=== PATIENT | female | born 1955 ===

== ENCOUNTER 2016-10-30 10:21 | Inpatient (IN) | payer MEDICAID ==
[2016-10-30 15:38] VITALS: BMI 30.9
[2016-10-30] MEDS ORDERED: Atovaquone 750 mg/5 ml Susp UD PO SCH (16:45)
[2016-10-30] MEDS ORDERED: Pneumococcal 23-Valent Vaccine IM ONE (17:00)
--- NOTE | 2016-10-30 18:41 | CP.PCM.HP ---
History of Present Illness - History of Present Illness History of Present Illness: Hospitalist Admission H&P (Patient was seen and examined at 6 PM 621-1 10/30/16 with the help of HARIKA Garibay who helped to translate Somali) 61 year old female ( who was admitted to [facility] on 10/24/16 after waking up from a nap and was found to have right sided weakness and slurred speech. She was found to have an evolving left mike radiata infact and was given TPA. She is admitted to [facility] Rehab for PT/OT. MRI Brain [facility]: evolving left mike radiata infarct 12x8 mm, small old right pontine lacunar infarct Carotid U/S [facility]: no signs of stenosis Currently upon FULL ROS: NO chest pain, NO palpitations, NO SOB/Cough/Wheezing, NO Abdominal Pain, NO n/v /d/c, NO burning/pain with urinations, NO lightheadedness/dizziness, NO headaches, NO new changes in vision/eye pain, NO new changes in hearing/ear pain , (+) Left Ear Popping sensation that comes and goes, NO paresthesias/loss of sensation PMHx: HIV, Nephrolithiasis, Cholelithiasis, Cervical CA S/P Chemo/Radiation ( Last Tx 2010), Asthma, Depression, Cocaine use (last use was 09/29/16) PSHx: Unspecified Spinal Surgery (2010), Unspecified Left Upper Leg Mass x 2 removal (2009) ALL: NDKA Medications: Please see individual Assessment and Plans below Social Hx: Lives in multilevel family home, (+) Tobacco: once a month she smokes 1 pack, (+) Alcohol: once a month she drinks 6 beers, (+) Cocaine: last use 09/29/16 Family Hx: coud not provide Present on Admission - Present on Admission Any Indicators Present on Admission: Yes History of DVT/PE: No History of Uncontrolled Diabetes: No Review of Systems - Review of Systems Review of Systems: Please see above Past Patient History - Past Medical History & Family History Past Medical History?: Yes Pertinent Family History: Please see above - Past Social History Smoking Status: Heavy Smoker > 10 Cigarettes Daily - CARDIAC Hx Cardiac Disorders: No - PULMONARY Hx Asthma: Yes - NEUROLOGICAL HX Cerebrovascular Accident: Yes (09/2016) - HEENT Hx HEENT Problems: No - RENAL Hx Kidney Stones: Yes - ENDOCRINE/METABOLIC Hx Endocrine Disorders: No - HEMATOLOGICAL/ONCOLOGICAL Hx AIDS: Yes Hx Chemotherapy: Yes Hx Human Immunodeficiency Virus (HIV): Yes - INTEGUMENTARY Hx Dermatological Problems: No - MUSCULOSKELETAL/RHEUMATOLOGICAL Hx Falls: No Other/Comment: SPINAL SURGERY 2010 - GASTROINTESTINAL Hx Gall Bladder Disease: Yes (CHOLELITHIASIS) - GENITOURINARY/GYNECOLOGICAL Hx Cervical Cancer: Yes (S/P CHEMO AND RADIATION 2010) Hx Sexually Transmitted Disorders: Yes Other/Comment: OVARIAN(?) OR CERVICAL(?) MASS X2 S/P EXCISION - PSYCHIATRIC Hx Depression: Yes Hx Substance Use: Yes (COCAINE ONCE A MONTH, LAST USE 09/29) Other/Comment: -SMOKES 1 PACK OF CIGARETTE IN ONE DAY ONCE A MONTH X25 YEARS. - DRINKS 6 BEERS IN ONE DAY, ONCE A MONTH X25 YEARS. SNORTS COCAINE ONE DAY ONCE A MONTH X25 YEARS - ANESTHESIA Hx Anesthesia: Yes Hx Anesthesia Reactions: No Hx Malignant Hyperthermia: No Has any member of the family had a problem w/ anesthesia?: No Meds Allergies/Adverse Reactions: Allergies Allergy/AdvReac Type Severity Reaction Status Date / Time No Known Allergies Allergy Verified 10/30/16 15:38 Physical Exam - Constitutional Appears: Non-toxic, No Acute Distress - Head Exam Head Exam: ATRAUMATIC, NORMAL INSPECTION, NORMOCEPHALIC - Eye Exam Eye Exam: EOMI, Normal appearance, PERRL Pupil Exam: NORMAL ACCOMODATION, PERRL - ENT Exam ENT Exam: Mucous Membranes Moist, Normal Exam, Normal External Ear Exam, Normal Oropharynx - Neck Exam Neck exam: Positive for: Normal Inspection Additional comments: NO thyromegaly NO lymphadenopathy - Respiratory Exam Respiratory Exam: Clear to Auscultation Bilateral, NORMAL BREATHING PATTERN Additional comments: CTA B/L, NO R/R/W - Cardiovascular Exam Cardiovascular Exam: REGULAR RHYTHM, +S1, +S2 Additional comments: NS1 and NS2, NO M/R/G - GI/Abdominal Exam GI & Abdominal Exam: Normal Bowel Sounds, Soft Additional comments: BSx4, Soft, NT, ND, NO HSM, NO guarding/rebound tenderness - Extremities Exam Extremities exam: Positive for: normal inspection Additional comments: Pulses are strong and equal Capillary Refill is 2 seconds NO edema Onychomycosis of the nails of the feet - Neurological Exam Neurological exam: CN II-XII Intact Additional comments: 5/5 strength with flexion and extension Left Arm and Left Leg 3/5 strength with flexion and extension Right Arm and Right Leg Results - Vital Signs Recent Vital Signs: Last Vital Signs Temp 97.7 F 10/30/16 15:25 Pulse 67 10/30/16 15:53 Resp 20 10/30/16 15:53 BP 111/76 10/30/16 15:25 Pulse Ox 96 10/30/16 15:53 Assessment & Plan (1) Hx of ischemic left MCA stroke Assessment and Plan: ASA 81 mg PO 1x/day Plavix 75 mg PO 1x/day Atorvastatin 80 mg PO 1x/day through 11/16/16 then 40 mg PO 1x/day as per [facility] records Neurology Dr. Frida Guevara Physiatry Dr. Zavala PT/OT Status: Chronic (2) HIV (human immunodeficiency virus infection) Assessment and Plan: Last CD 4 count was 173 on 10/04/16 as per [facility] records Patient states that ID Dr. Christina Romero follows her as outpatient and she last saw Dr. Romero on 10/23/16 at which time she was instructed (as per patient) to start taking her Truvada and Prezcobix which she stopped taking on her for roughly 5 months She was not started on these medications at [facility] presumably due to her noncompliance with the treatment in the past. Medicine Team should contact Dr. Christina Romero and determine if she would like patient to be started on these medications as she is her outpatient ID physician I spoke with ID Dr. Zeus Unger and he recommended prophylaxis with Bactrim DS 1 tab PO and Zythromax 600 mg 1 tab PO 1x/week (Saturday) Status: Chronic (3) History of asthma Assessment and Plan: Duoneb Q6H PRN SOB/Wheezing Status: Chronic (4) History of depression Status: Chronic (5) History of cocaine use Status: Chronic (6) Prophylactic measure Assessment and Plan: Lovenox 40 mg SC 1x/day Pepcid 20 mg PO 2x/day Lactobacillus PO 1x/day Zofran 4 mg IV Q8H PRN N/V Ambien 5 mg PO QHS PRN Insomnia Status: Acute
[2016-10-30] MEDS ORDERED: Albuterol-Ipratrop 3 mg / 0.5 (3 ml) UD INH PRN (19:59)
[2016-10-31 07:28] LABS: BASO % 0.6 % (0.0-2.0); EOS # 0.1 K/uL (0.0-0.7); EOS % 2.6 % (0.0-4.0); HEMOGLOBIN 13.2 g/dL (12.0-16.0); LYMPH # 1.3 K/uL (1.0-4.3); LYMPH % 31.5 % (20.0-40.0); MEAN CELL VOLUME 87.6 fl (81.0-99.0); MEAN CORPUSCULAR HEMOGLOBIN 28.8 pg (27.0-31.0); MEAN CORPUSCULAR HGB CONC 32.8 g/dL (33.0-37.0); MEAN PLATELET VOLUME 10.3 fl (7.2-11.7); MONO # 0.5 K/uL (0.0-0.8); MONO % 12.2 % (0.0-10.0); NEUT # 2.1 K/uL (1.8-7.0); NEUT % 53.1 % (50.0-75.0); NRBC % 0.5 % (0.0-0.0); RBC 4.6 Mil/uL (3.80-5.20); RED CELL DISTRIBUTION WIDTH 13.8 % (11.5-14.5)
[2016-10-31 07:41] LABS: ALB/GLOB RATIO 0.8 (1.0-2.1); ALBUMIN 3.9 g/dL (3.5-5.0); ALT/SGPT 50 U/L (9-52); AST/SGOT 59 U/L (14-36); BLOOD UREA NITROGEN 17 mg/dl (7-17); CALCIUM 9.1 mg/dL (8.4-10.2); GFR AFRICAN-AMERICAN > 60; GFR NON-AFRICAN AMERICAN 51
[2016-10-31] MEDS: Lactobacillus Acidophilus 500 MU Cap PO SCH (08:29)
[2016-10-31] MEDS: Tmp-Smz 800 mg-160 mg DS Tab PO SCH (08:29)
[2016-10-31] MEDS: Enoxaparin 40 mg Syringe SC SCH (08:30)
--- NOTE | 2016-10-31 11:26 | CP.PCM.PN ---
Subjective - Date & Time of Evaluation Date of Evaluation: 10/31/16 Time of Evaluation: 11:24 - Subjective Subjective: left CVA, right HP Objective - Vital Signs/Intake and Output Vital Signs (last 24 hours): Temp Pulse Resp BP Pulse Ox 97.5 F L 72 18 99/65 L 97 10/31/16 10:00 10/31/16 10:00 10/31/16 10:00 10/31/16 10:00 10/31/16 10:00 - Medications Medications: Current Medications Albuterol/Ipratropium (Duoneb 3 Mg/0.5 Mg (3 Ml) Ud) 3 ml INH RQ6 PRN PRN Reason: Shortness of Breath Aspirin (Aspirin Chewable) 81 mg PO DAILY [facility] Last Admin: 10/31/16 08:29 Dose: 81 mg Atorvastatin Calcium (Lipitor) 80 mg PO HS [facility] Last Admin: 10/30/16 21:14 Dose: 80 mg Azithromycin (Zithromax) 600 mg PO QWK@2100 [facility] Last Admin: 10/30/16 21:14 Dose: 600 mg Clopidogrel Bisulfate (Plavix) 75 mg PO DAILY [facility] Last Admin: 10/31/16 08:30 Dose: 75 mg Enoxaparin Sodium (Lovenox) 40 mg SC DAILY [facility] PRN Reason: Protocol Last Admin: 10/31/16 08:30 Dose: 40 mg Famotidine (Pepcid) 20 mg PO BID [facility] Last Admin: 10/31/16 08:31 Dose: 20 mg Lactobacillus Acidophilus (Bacid Acidophilus) 1 cap PO DAILY [facility] Last Admin: 10/31/16 08:29 Dose: 1 cap Trimethoprim/Sulfamethoxazole (Bactrim Ds Tab) 1 tab PO MWF [facility] Last Admin: 10/31/16 08:29 Dose: 1 tab Zolpidem Tartrate (Ambien) 5 mg PO HS PRN PRN Reason: Insomnia Last Admin: 10/30/16 23:11 Dose: 5 mg - Labs Labs: 10/31/16 06:00 10/31/16 06:00 Physiatry Overall Plan of Care - Overall Plan of Care Estimated Length of Stay in Weeks: 3 Rehab Impairment: Mobility, Gait, Balance, Coordination Etiologic Diagnosis: Cerebrovascular Accident Rehab/Medical Prognosis: Fair - Anticipated Interventions Physical Therapy:: Yes Occupational Therapy:: Yes Recreational Therapy:: Yes - Therapy Goals Bed Mobility: Contact Guard Ambulation: Contact Guard Functional Positional Changes:: Contact Guard - Discharge Plan Identification of Barriers to Discharge: Home Situation Discharge Destination: Home
--- NOTE | 2016-10-31 11:32 | CP.PCM.CON ---
History of Present Illness - History of Present Illness History of Present Illness: Dr Zavala PMR consultation on Kinga Perrin, born 1955, who has been admitted to [facility] for acute inpatient rehabilitation following a left CVA with right HP, MCA distribution. tPA had been given. Active cocaine user and HIV+ Review of Systems - EENT Nose/Mouth/Throat: absent: Nasal Congestion - Cardiovascular Cardiovascular: absent: Chest Pain - Respiratory Respiratory: absent: Dyspnea - Gastrointestinal Gastrointestinal: absent: Belching, Constipation - Musculoskeletal Musculoskeletal: absent: Back Pain - Neurological Neurological: absent: Abnormal Movements Past Patient History - Past Medical History & Family History Past Medical History?: Yes - Past Social History Smoking Status: Heavy Smoker > 10 Cigarettes Daily Alcohol: < 2 Drinks/Day Drugs: Cocaine Home Situation {Lives}: With Family (10 steps) - CARDIAC Hx Cardiac Disorders: No - PULMONARY Hx Asthma: Yes - NEUROLOGICAL HX Cerebrovascular Accident: Yes (09/2016) - HEENT Hx HEENT Problems: No - RENAL Hx Kidney Stones: Yes - ENDOCRINE/METABOLIC Hx Endocrine Disorders: No - HEMATOLOGICAL/ONCOLOGICAL Hx AIDS: Yes Hx Chemotherapy: Yes Hx Human Immunodeficiency Virus (HIV): Yes - INTEGUMENTARY Hx Dermatological Problems: No - MUSCULOSKELETAL/RHEUMATOLOGICAL Hx Falls: No Other/Comment: SPINAL SURGERY 2010 - GASTROINTESTINAL Hx Gall Bladder Disease: Yes (CHOLELITHIASIS) - GENITOURINARY/GYNECOLOGICAL Hx Cervical Cancer: Yes (S/P CHEMO AND RADIATION 2010) Hx Sexually Transmitted Disorders: Yes Other/Comment: OVARIAN(?) OR CERVICAL(?) MASS X2 S/P EXCISION - PSYCHIATRIC Hx Depression: Yes Hx Substance Use: Yes (COCAINE ONCE A MONTH, LAST USE 09/29) Other/Comment: -SMOKES 1 PACK OF CIGARETTE IN ONE DAY ONCE A MONTH X25 YEARS. - DRINKS 6 BEERS IN ONE DAY, ONCE A MONTH X25 YEARS. SNORTS COCAINE ONE DAY ONCE A MONTH X25 YEARS - ANESTHESIA Hx Anesthesia: Yes Hx Anesthesia Reactions: No Hx Malignant Hyperthermia: No Has any member of the family had a problem w/ anesthesia?: No Meds Allergies/Adverse Reactions: Allergies Allergy/AdvReac Type Severity Reaction Status Date / Time No Known Allergies Allergy Verified 10/30/16 15:38 - Medications Medications: Current Medications Albuterol/Ipratropium (Duoneb 3 Mg/0.5 Mg (3 Ml) Ud) 3 ml INH RQ6 PRN PRN Reason: Shortness of Breath Aspirin (Aspirin Chewable) 81 mg PO DAILY [facility] Last Admin: 10/31/16 08:29 Dose: 81 mg Atorvastatin Calcium (Lipitor) 80 mg PO HS [facility] Last Admin: 10/30/16 21:14 Dose: 80 mg Azithromycin (Zithromax) 600 mg PO QWK@2100 [facility] Last Admin: 10/30/16 21:14 Dose: 600 mg Clopidogrel Bisulfate (Plavix) 75 mg PO DAILY [facility] Last Admin: 10/31/16 08:30 Dose: 75 mg Enoxaparin Sodium (Lovenox) 40 mg SC DAILY [facility] PRN Reason: Protocol Last Admin: 10/31/16 08:30 Dose: 40 mg Famotidine (Pepcid) 20 mg PO BID [facility] Last Admin: 10/31/16 08:31 Dose: 20 mg Lactobacillus Acidophilus (Bacid Acidophilus) 1 cap PO DAILY [facility] Last Admin: 10/31/16 08:29 Dose: 1 cap Trimethoprim/Sulfamethoxazole (Bactrim Ds Tab) 1 tab PO MWF [facility] Last Admin: 10/31/16 08:29 Dose: 1 tab Zolpidem Tartrate (Ambien) 5 mg PO HS PRN PRN Reason: Insomnia Last Admin: 10/30/16 23:11 Dose: 5 mg Physical Exam - Constitutional Appears: Non-toxic, No Acute Distress - Head Exam Head Exam: ATRAUMATIC, NORMAL INSPECTION, NORMOCEPHALIC - Eye Exam Eye Exam: EOMI, Normal appearance - ENT Exam ENT Exam: Mucous Membranes Moist - Respiratory Exam Respiratory Exam: NORMAL BREATHING PATTERN - Cardiovascular Exam Cardiovascular Exam: REGULAR RHYTHM - GI/Abdominal Exam GI & Abdominal Exam: absent: Distended - Extremities Exam Extremities exam: Negative for: calf tenderness, pedal edema - Neurological Exam Neurological exam: Alert, CN II-XII Intact, Oriented x3 - Psychiatric Exam Psychiatric exam: Normal Affect, Normal Mood - Skin Skin Exam: Warm Results - Vital Signs Recent Vital Signs: Last Vital Signs Temp 97.5 F L 10/31/16 10:00 Pulse 72 10/31/16 10:00 Resp 18 10/31/16 10:00 BP 99/65 L 10/31/16 10:00 Pulse Ox 97 10/31/16 10:00 - Labs Result Diagrams: 10/31/16 06:00 10/31/16 06:00 Labs: Laboratory Results - last 24 hr 10/31/16 10/31/16 06:00 06:00 WBC 4.0 L RBC 4.60 Hgb 13.2 Hct 40.3 MCV 87.6 MCH 28.8 MCHC 32.8 L RDW 13.8 Plt Count 115 L MPV 10.3 Neut % (Auto) 53.1 Lymph % (Auto) 31.5 Garland % (Auto) 12.2 H Eos % (Auto) 2.6 Baso % (Auto) 0.6 Neut # 2.1 Lymph # 1.3 Garland # 0.5 Eos # 0.1 Baso # 0.0 Sodium 137 Potassium 4.4 Chloride 101 Carbon Dioxide 26 Anion Gap 14 BUN 17 Creatinine 1.1 Est GFR ( Amer) > 60 Est GFR (Non-Af Amer) 51 Random Glucose 95 Calcium 9.1 Total Bilirubin 0.9 AST 59 H ALT 50 Alkaline Phosphatase 148 H Total Protein 8.8 H Albumin 3.9 Globulin 4.9 H Albumin/Globulin Ratio 0.8 L Assessment & Plan - Assessment and Plan (Free Text) Assessment: left CVA, right HP right UE 2-/5 and right LE 3+/5 PT/OT to continue to help increase functional independence Team conference for d/c planning Pain: controlled Vascular: no evidence of DVT GI: No evidence of constipation or diarrhea I will get a psych consult with Dr Tineo impairment code: 01.2 Patient is an excellent acute rehabilitation candidate and will have focused PT , OT and recreational therapy to help facilitate a safe and appropriate d/c plan
--- NOTE | 2016-10-31 14:51 | CON ---
DATE: 10/31/2016 CHIEF COMPLAINT: Right-sided weakness, status post left MCA territory infarct. HISTORY OF PRESENT ILLNESS: A 61-year-old woman who I know from [facility] with past medical history of cocaine use, last used on 09/29/2016; history of asthma; depression; hypertension; dyslipidemia; smoker, smoking 1 pack per day; who came into [facility] on 10/24/2016, after waking up from nap, was found to have right-sided weakness and slurred speech with status post TPA and found to have left MCA mike radiata infarct. She is currently on aspirin, Plavix and Lipitor 80 mg for stroke prevention, carotid ultrasound showed no significant stenosis. Currently, she has right hemiparesis/right upper extremity hemiplegia and right lower extremity hemiparesis from the CVA, stabilized at [facility] for acute rehab, physical and occupational therapy as well as speech. No acute events overnight. PAST MEDICAL HISTORY: Cocaine use, last on 09/29/2016; smoker; history of HIV; cervical CA, status post chemo and radiation; asthma; dyslipidemia; hypertension. PAST SURGICAL HISTORY: Spinal surgery on 2010. ALLERGIES: NO KNOWN DRUG ALLERGIES. MEDICATIONS: Reviewed by nurse per reconciliation sheet. SOCIAL HISTORY: She lives in multi-level family home. Positive for tobacco, once a month she smokes one pack per day. Alcohol occasionally, drinks 6 beers. Cocaine last use was on 09/29/2016. FAMILY HISTORY: Noncontributory. REVIEW OF SYSTEMS: A 14-point review of systems is negative except per the HPI. PHYSICAL EXAMINATION: VITAL SIGNS: Temperature 97.5, pulse rate , blood pressure 99/65, respiratory rate of 18, and oxygen saturation 97% by room air. GENERAL: The patient sitting up in bed, in no acute distress. HEENT: Head is atraumatic, normocephalic. PERRLA. Extraocular muscles intact. NECK: Supple. No JVD. No adenopathy noted. LUNGS: Clear to auscultation. No adventitious sounds. HEART: S1 and S2, normal rate and rhythm. No murmur, rubs, or gallops. ABDOMEN: Soft, nontender, nondistended. Bowel sounds present. EXTREMITIES: No clubbing. No cyanosis. Peripheral pulses 2+ felt bilaterally. NEUROLOGIC: The patient is alert and oriented to person, place, month, and year. Speech is sightly dysarthric, but no aphasia noted. Cranial nerves II through XII are intact except for right facial droop. Motor exam: Has right side weakness 4+/5, right toe upgoing, left side is intact, internal strength. Sensory exam: Light touch pinprick, proprioception, and vibration is intact. DTRs are 2+ throughout. [id number] is intact on the left, but difficulty on the right due to right-sided hemiplegia. Gait deferred for now. LABORATORY DATA: Sodium is 137, potassium 4.4, chloride 101, carbon dioxide 26, BUN of 17, and creatinine 1.1. Random glucose of 95. ASSESSMENT AND PLAN: This is a 61-year-old woman with past medical history of cervical cancer, status post chemo radiation, last treatment in 2010; history of dyslipidemia; hypertension; history of cocaine use, last use on 09/29/2016 and is an active smoker, who presented to the [facility] on 10/24/2016, after waking from nap and found to have right-sided weakness and slurred speech and status post TPA and found to have evolving left mike radiata infarct with no significant carotid artery stenosis. Her left MCA territory infract causing right-sided weakness secondary to diffuse atherosclerosis and history of cocaine use. At this time, I recommend: 1. Counseling cocaine cessation and tobacco cessation. 2. Aspirin 81, Plavix 75 and Lipitor 80 mg for stroke prevention. 3. Continue with physical therapy, occupational therapy and speech therapy in acute rehab. 4. Keep her systolic blood pressure between 120-130 mmHg, avoid sudden drops in blood pressure. 5. Continue current present medical management. Thank you for this consult. Trae Guevara MD
--- NOTE | 2016-10-31 20:42 | CP.PCM.PN ---
Subjective - Date & Time of Evaluation Date of Evaluation: 10/31/16 Time of Evaluation: 20:39 - Subjective Subjective: I D NOTE DISCUSSED LAST NIGHT,IF PATIENT UNWILLING TO CONTINUE TAKING [employer]Vs WOULD NOT START UNLESS HER ID PERSON CAN BE CONTACTED WOULD ONLY CREATE RESISTANCE Objective - Vital Signs/Intake and Output Vital Signs (last 24 hours): Temp Pulse Resp BP Pulse Ox 98.4 F 74 20 106/65 99 10/31/16 20:00 10/31/16 20:00 10/31/16 20:00 10/31/16 20:00 10/31/16 20:00 - Medications Medications: Current Medications Acetaminophen (Tylenol 325mg Tab) 650 mg PO Q4 PRN PRN Reason: .Pain (scale 4-10) Last Admin: 10/31/16 19:53 Dose: 650 mg Albuterol/Ipratropium (Duoneb 3 Mg/0.5 Mg (3 Ml) Ud) 3 ml INH RQ6 PRN PRN Reason: Shortness of Breath Aspirin (Aspirin Chewable) 81 mg PO DAILY [facility] Last Admin: 10/31/16 08:29 Dose: 81 mg Atorvastatin Calcium (Lipitor) 80 mg PO HS [facility] Last Admin: 10/30/16 21:14 Dose: 80 mg Azithromycin (Zithromax) 600 mg PO QWK@2100 [facility] Last Admin: 10/30/16 21:14 Dose: 600 mg Clopidogrel Bisulfate (Plavix) 75 mg PO DAILY [facility] Last Admin: 10/31/16 08:30 Dose: 75 mg Enoxaparin Sodium (Lovenox) 40 mg SC DAILY [facility] PRN Reason: Protocol Last Admin: 10/31/16 08:30 Dose: 40 mg Famotidine (Pepcid) 20 mg PO BID [facility] Last Admin: 10/31/16 16:51 Dose: 20 mg Lactobacillus Acidophilus (Bacid Acidophilus) 1 cap PO DAILY [facility] Last Admin: 10/31/16 08:29 Dose: 1 cap Trimethoprim/Sulfamethoxazole (Bactrim Ds Tab) 1 tab PO MWF [facility] Last Admin: 10/31/16 08:29 Dose: 1 tab Zolpidem Tartrate (Ambien) 5 mg PO HS PRN PRN Reason: Insomnia Last Admin: 10/30/16 23:11 Dose: 5 mg - Labs Labs: 10/31/16 06:00 10/31/16 06:00
[2016-11-01] MEDS: Lactobacillus Acidophilus 500 MU Cap PO SCH (08:25)
[2016-11-01] MEDS: Enoxaparin 40 mg Syringe SC SCH (08:25)
--- NOTE | 2016-11-01 14:53 | CP.PCM.PN ---
Subjective - Date & Time of Evaluation Date of Evaluation: 11/01/16 Time of Evaluation: 14:52 - Subjective Subjective: Patient seen in the room family present already good improvement in the left UE strength compared with yesterday continue current care Objective - Vital Signs/Intake and Output Vital Signs (last 24 hours): Temp Pulse Resp BP Pulse Ox 97.5 F L 65 20 100/69 98 11/01/16 07:41 11/01/16 07:41 11/01/16 07:41 11/01/16 07:41 11/01/16 07:41 - Medications Medications: Current Medications Acetaminophen (Tylenol 325mg Tab) 650 mg PO Q4 PRN PRN Reason: .Pain (scale 4-10) Last Admin: 10/31/16 19:53 Dose: 650 mg Albuterol/Ipratropium (Duoneb 3 Mg/0.5 Mg (3 Ml) Ud) 3 ml INH RQ6 PRN PRN Reason: Shortness of Breath Aspirin (Aspirin Chewable) 81 mg PO DAILY [facility] Last Admin: 11/01/16 08:25 Dose: 81 mg Atorvastatin Calcium (Lipitor) 80 mg PO HS [facility] Last Admin: 10/31/16 21:03 Dose: 80 mg Azithromycin (Zithromax) 600 mg PO QWK@2100 [facility] Last Admin: 10/30/16 21:14 Dose: 600 mg Clopidogrel Bisulfate (Plavix) 75 mg PO DAILY [facility] Last Admin: 11/01/16 08:25 Dose: 75 mg Enoxaparin Sodium (Lovenox) 40 mg SC DAILY [facility] PRN Reason: Protocol Last Admin: 11/01/16 08:25 Dose: 40 mg Famotidine (Pepcid) 20 mg PO BID [facility] Last Admin: 11/01/16 08:25 Dose: 20 mg Lactobacillus Acidophilus (Bacid Acidophilus) 1 cap PO DAILY [facility] Last Admin: 11/01/16 08:25 Dose: 1 cap Trimethoprim/Sulfamethoxazole (Bactrim Ds Tab) 1 tab PO MWF [facility] Last Admin: 10/31/16 08:29 Dose: 1 tab Zolpidem Tartrate (Ambien) 5 mg PO HS PRN PRN Reason: Insomnia Last Admin: 10/31/16 22:57 Dose: 5 mg - Labs Labs: 10/31/16 06:00 10/31/16 06:00
--- NOTE | 2016-11-01 18:20 | CP.PCM.PN ---
Subjective - Date & Time of Evaluation Date of Evaluation: 11/01/16 Time of Evaluation: 18:13 - Subjective Subjective: I D NOTE(CONSULT) PATIENT EXAMINED ,CHART REVIEWED DISCUSSED HIV STATUS C PATIENT. SHE STATES THAT SHE WANTS TO RESTART HER ART. SHE HAS NOT TAKEN FOR OVER 5 MONTHS . SHE WAS ON PREZCOBIX AND TRUVADA SHE IS PRESENTLY SHOWING EVIDENCE OF RENAL INSUFFICIENCY GFR:51 AND CREATININE IS 1.1 WOULD HESITATE RE INTRODUCING TRUVADA(VIREAD COMPONENT) ALSO PREZCOBIX IS NOT ON FORMULARY BUT COULD GIVE PREZISTA 800MG OD C [id number] OD C TIVICAY(ALSO NOT ON FORMULARY ALSO COULD SUBSTITUTE ISENTRESS 400MG PO BID WHILE HERE WILL ORDER HIV GENOTYPING AND HLA B57(ABACAVIR HYPERSENSITIVTY Objective - Vital Signs/Intake and Output Vital Signs (last 24 hours): Temp Pulse Resp BP Pulse Ox 97.5 F L 65 20 100/69 98 11/01/16 07:41 11/01/16 07:41 11/01/16 07:41 11/01/16 07:41 11/01/16 07:41 - Medications Medications: Current Medications Acetaminophen (Tylenol 325mg Tab) 650 mg PO Q4 PRN PRN Reason: .Pain (scale 4-10) Last Admin: 10/31/16 19:53 Dose: 650 mg Albuterol/Ipratropium (Duoneb 3 Mg/0.5 Mg (3 Ml) Ud) 3 ml INH RQ6 PRN PRN Reason: Shortness of Breath Aspirin (Aspirin Chewable) 81 mg PO DAILY [facility] Last Admin: 11/01/16 08:25 Dose: 81 mg Atorvastatin Calcium (Lipitor) 80 mg PO HS [facility] Last Admin: 10/31/16 21:03 Dose: 80 mg Azithromycin (Zithromax) 600 mg PO QWK@2100 [facility] Last Admin: 10/30/16 21:14 Dose: 600 mg Clopidogrel Bisulfate (Plavix) 75 mg PO DAILY [facility] Last Admin: 11/01/16 08:25 Dose: 75 mg Enoxaparin Sodium (Lovenox) 40 mg SC DAILY [facility] PRN Reason: Protocol Last Admin: 11/01/16 08:25 Dose: 40 mg Famotidine (Pepcid) 20 mg PO BID [facility] Last Admin: 11/01/16 16:51 Dose: 20 mg Guaifenesin/Dextromethorphan (Robitussin Dm) 10 ml PO Q6 PRN PRN Reason: Cough Lactobacillus Acidophilus (Bacid Acidophilus) 1 cap PO DAILY [facility] Last Admin: 11/01/16 08:25 Dose: 1 cap Trimethoprim/Sulfamethoxazole (Bactrim Ds Tab) 1 tab PO MWF [facility] Last Admin: 10/31/16 08:29 Dose: 1 tab Zolpidem Tartrate (Ambien) 5 mg PO HS PRN PRN Reason: Insomnia Last Admin: 10/31/16 22:57 Dose: 5 mg - Labs Labs: 10/31/16 06:00 10/31/16 06:00
[2016-11-01 18:39] LABS: BLOOD UREA NITROGEN 17 mg/dl (7-17); CALCIUM 9.4 mg/dL (8.4-10.2); GFR AFRICAN-AMERICAN > 60; GFR NON-AFRICAN AMERICAN > 60
[2016-11-02] MEDS: Tmp-Smz 800 mg-160 mg DS Tab PO SCH (08:16)
[2016-11-02] MEDS: Lactobacillus Acidophilus 500 MU Cap PO SCH (08:16)
[2016-11-02] MEDS: Enoxaparin 40 mg Syringe SC SCH (08:16)
--- NOTE | 2016-11-02 09:43 | CP.PCM.PN ---
Subjective - Date & Time of Evaluation Date of Evaluation: 11/02/16 Time of Evaluation: 09:42 - Subjective Subjective: pt doing well tolerating PT well tolerating meds well no complaints HD stable NAD Objective - Vital Signs/Intake and Output Vital Signs (last 24 hours): Temp Pulse Resp BP Pulse Ox 97.3 F L 68 18 110/76 99 11/02/16 07:32 11/02/16 07:32 11/02/16 07:32 11/02/16 07:32 11/02/16 07:32 - Medications Medications: Current Medications Acetaminophen (Tylenol 325mg Tab) 650 mg PO Q4 PRN PRN Reason: .Pain (scale 4-10) Last Admin: 11/01/16 21:29 Dose: 650 mg Albuterol/Ipratropium (Duoneb 3 Mg/0.5 Mg (3 Ml) Ud) 3 ml INH RQ6 PRN PRN Reason: Shortness of Breath Aspirin (Aspirin Chewable) 81 mg PO DAILY [facility] Last Admin: 11/02/16 08:16 Dose: 81 mg Atorvastatin Calcium (Lipitor) 80 mg PO HS [facility] Last Admin: 11/01/16 21:30 Dose: 80 mg Azithromycin (Zithromax) 600 mg PO QWK@2100 [facility] Last Admin: 10/30/16 21:14 Dose: 600 mg Clopidogrel Bisulfate (Plavix) 75 mg PO DAILY [facility] Last Admin: 11/02/16 08:16 Dose: 75 mg Darunavir (Prezista) 800 mg PO DAILY [facility] Last Admin: 11/02/16 08:16 Dose: 800 mg Enoxaparin Sodium (Lovenox) 40 mg SC DAILY [facility] PRN Reason: Protocol Last Admin: 11/02/16 08:16 Dose: 40 mg Famotidine (Pepcid) 20 mg PO BID [facility] Last Admin: 11/02/16 08:16 Dose: 20 mg Guaifenesin/Dextromethorphan (Robitussin Dm) 10 ml PO Q6 PRN PRN Reason: Cough Lactobacillus Acidophilus (Bacid Acidophilus) 1 cap PO DAILY [facility] Last Admin: 11/02/16 08:16 Dose: 1 cap Raltegravir (Isentress) 400 mg PO BID [facility] Last Admin: 11/02/16 08:16 Dose: 400 mg Ritonavir (Norvir) 100 mg PO DAILY [facility] Last Admin: 11/02/16 08:16 Dose: 100 mg Trimethoprim/Sulfamethoxazole (Bactrim Ds Tab) 1 tab PO MWF [facility] Last Admin: 11/02/16 08:16 Dose: 1 tab Zolpidem Tartrate (Ambien) 5 mg PO HS PRN PRN Reason: Insomnia Last Admin: 11/01/16 22:46 Dose: 5 mg - Labs Labs: 10/31/16 06:00 11/01/16 18:15 - Constitutional Appears: Non-toxic, No Acute Distress - Head Exam Head Exam: ATRAUMATIC, NORMOCEPHALIC - Eye Exam Eye Exam: EOMI, Normal appearance, PERRL Pupil Exam: NORMAL ACCOMODATION - ENT Exam ENT Exam: Mucous Membranes Moist, Normal Oropharynx - Respiratory Exam Respiratory Exam: Clear to Ausculation Bilateral, NORMAL BREATHING PATTERN - Cardiovascular Exam Cardiovascular Exam: RRR, +S1, +S2 - GI/Abdominal Exam GI & Abdominal Exam: Soft, Normal Bowel Sounds. absent: Tenderness, Organomegaly - Extremities Exam Extremities Exam: Normal Capillary Refill. absent: Joint Swelling - Back Exam Back Exam: absent: CVA tenderness (L), CVA tenderness (R) - Neurological Exam Neurological Exam: Alert, Awake - Psychiatric Exam Psychiatric exam: Normal Affect, Normal Mood - Skin Skin Exam: Dry, Normal Color Assessment and Plan - Assessment and Plan (Free Text) Plan: 61 year old female ( who was [place] [facility] [place] after waking up from a nap and was found to have right sided weakness and slurred speech. She was found to have an evolving left mike radiata infact and was given TPA. She is admitted to [facility] for PT/OT. (1) Hx of ischemic left MCA stroke Assessment and Plan: ASA 81 mg PO 1x/day Plavix 75 mg PO 1x/day Atorvastatin 80 mg PO 1x/day through 11/16/16 then 40 mg PO 1x/day as per [facility] [place] Neurology Dr. Frida Guevara Physiatry Dr. Zavala PT/OT (2) HIV (human immunodeficiency virus infection) Assessment and Plan: Last CD 4 count was 173 on 10/04/16 as per [facility] [place]. Christina Romero outpatient ID physician I spoke with ID Dr. Zeus Unger and he recommended prophylaxis with Bactrim DS 1 tab PO and Zythromax 600 mg 1 tab PO 1x/week (Saturday) Restartede Prezista and Norvir and Raltegravir (3) History of asthma Assessment and Plan: Duoneb Q6H PRN SOB/Wheezing Status: Chronic (4) History of depression Status: Chronic (5) History of cocaine use Status: Chronic (6) Prophylactic measure Assessment and Plan: Lovenox 40 mg SC 1x/day Pepcid 20 mg PO 2x/day Lactobacillus PO 1x/day Zofran 4 mg IV Q8H PRN N/V Ambien 5 mg PO QHS PRN Insomnia Status: Acute
--- NOTE | 2016-11-02 16:07 | CP.PCM.PN ---
Subjective - Date & Time of Evaluation Date of Evaluation: 11/02/16 Time of Evaluation: 16:05 - Subjective Subjective: Patient seen had some dizziness ambulated 100+' with QC improved ROM right UE Objective - Vital Signs/Intake and Output Vital Signs (last 24 hours): Temp Pulse Resp BP Pulse Ox 97.3 F L 68 18 110/76 99 11/02/16 07:32 11/02/16 07:32 11/02/16 07:32 11/02/16 07:32 11/02/16 07:32 - Medications Medications: Current Medications Acetaminophen (Tylenol 325mg Tab) 650 mg PO Q4 PRN PRN Reason: .Pain (scale 4-10) Last Admin: 11/01/16 21:29 Dose: 650 mg Albuterol/Ipratropium (Duoneb 3 Mg/0.5 Mg (3 Ml) Ud) 3 ml INH RQ6 PRN PRN Reason: Shortness of Breath Aspirin (Aspirin Chewable) 81 mg PO DAILY [facility] Last Admin: 11/02/16 08:16 Dose: 81 mg Atorvastatin Calcium (Lipitor) 80 mg PO HS [facility] Last Admin: 11/01/16 21:30 Dose: 80 mg Azithromycin (Zithromax) 600 mg PO QWK@2100 [facility] Last Admin: 10/30/16 21:14 Dose: 600 mg Clopidogrel Bisulfate (Plavix) 75 mg PO DAILY [facility] Last Admin: 11/02/16 08:16 Dose: 75 mg Darunavir (Prezista) 800 mg PO DAILY [facility] Last Admin: 11/02/16 08:16 Dose: 800 mg Docusate Sodium (Colace) 100 mg PO BID [facility] Enoxaparin Sodium (Lovenox) 40 mg SC DAILY [facility] PRN Reason: Protocol Last Admin: 11/02/16 08:16 Dose: 40 mg Famotidine (Pepcid) 20 mg PO BID [facility] Last Admin: 11/02/16 08:16 Dose: 20 mg Guaifenesin/Dextromethorphan (Robitussin Dm) 10 ml PO Q6 PRN PRN Reason: Cough Lactobacillus Acidophilus (Bacid Acidophilus) 1 cap PO DAILY [facility] Last Admin: 11/02/16 08:16 Dose: 1 cap Raltegravir (Isentress) 400 mg PO BID [facility] Last Admin: 11/02/16 08:16 Dose: 400 mg Ritonavir (Norvir) 100 mg PO DAILY [facility] Last Admin: 11/02/16 08:16 Dose: 100 mg Trimethoprim/Sulfamethoxazole (Bactrim Ds Tab) 1 tab PO MWF [facility] Last Admin: 11/02/16 08:16 Dose: 1 tab Zolpidem Tartrate (Ambien) 5 mg PO HS PRN PRN Reason: Insomnia Last Admin: 11/01/16 22:46 Dose: 5 mg - Labs Labs: 10/31/16 06:00 11/01/16 18:15
[2016-11-02] MEDS: guaiFENesin DM 200 mg-20 mg/10 ml UD PO PRN (17:27)
[2016-11-03 07:44] LABS: HEMOGLOBIN 13.2 g/dL (12.0-16.0); MEAN CELL VOLUME 87.6 fl (81.0-99.0); MEAN CORPUSCULAR HEMOGLOBIN 28.9 pg (27.0-31.0); RBC 4.57 Mil/uL (3.80-5.20); RED CELL DISTRIBUTION WIDTH 13.7 % (11.5-14.5); WHITE BLOOD COUNT 3.6 K/uL (4.8-10.8)
[2016-11-03] MEDS: Lactobacillus Acidophilus 500 MU Cap PO SCH (08:26)
[2016-11-03] MEDS: Enoxaparin 40 mg Syringe SC SCH (08:27)
[2016-11-04] MEDS: Enoxaparin 40 mg Syringe SC SCH (08:48)
[2016-11-04] MEDS: guaiFENesin DM 200 mg-20 mg/10 ml UD PO PRN ×2 (08:48→16:37)
[2016-11-04] MEDS: Lactobacillus Acidophilus 500 MU Cap PO SCH (08:48)
[2016-11-05 07:24] LABS: ALB/GLOB RATIO 0.8 (1.0-2.1); ALBUMIN 3.9 g/dL (3.5-5.0); ALT/SGPT 62 U/L (9-52); AST/SGOT 66 U/L (14-36); BLOOD UREA NITROGEN 18 mg/dl (7-17); CALCIUM 9.5 mg/dL (8.4-10.2); GFR AFRICAN-AMERICAN > 60; GFR NON-AFRICAN AMERICAN 57
--- NOTE | 2016-11-05 07:47 | CP.PCM.CON ---
History of Present Illness - History of Present Illness History of Present Illness: Pt is a 61 year old female admitted to [facility] and referred to the service writer advisor following a CVA. Pt reported a history HIV, CA/cervical and past chemotherapy. see medical record for complete med history and medications. Social History: pt lives with alone in [place]. She has three daughters, 2 in [place] and 1 in [place]. Pt reported positive relationships with her children and grandchildren. She described them as supportive. Psych: Pt reported current treatment at [facility] for [place]. She reported a past history of alc/sub abuse though no use at present. pt spoke of her CVA, current therapy and progress observed. She denied a significant increase in her depression with the CVA due to current gains. MSE: Pt alert, oriented x2, relevant/coherent, no psychosis, affect constricted , mood dysphoric, no si no hi ideation. Dx: Adjustment Dx, Past Depression plan: Continued Sup therapy- Cognitive strategies reviewed to reduce depression Past Patient History - Past Medical History & Family History Past Medical History?: Yes - Past Social History Smoking Status: Heavy Smoker > 10 Cigarettes Daily Alcohol: < 2 Drinks/Day Drugs: Cocaine Home Situation {Lives}: With Family (10 steps) - CARDIAC Hx Cardiac Disorders: No - PULMONARY Hx Asthma: Yes - NEUROLOGICAL HX Cerebrovascular Accident: Yes (09/2016) - HEENT Hx HEENT Problems: No - RENAL Hx Kidney Stones: Yes - ENDOCRINE/METABOLIC Hx Endocrine Disorders: No - HEMATOLOGICAL/ONCOLOGICAL Hx AIDS: Yes Hx Chemotherapy: Yes Hx Human Immunodeficiency Virus (HIV): Yes - INTEGUMENTARY Hx Dermatological Problems: No - MUSCULOSKELETAL/RHEUMATOLOGICAL Hx Falls: No Other/Comment: SPINAL SURGERY 2010 - GASTROINTESTINAL Hx Gall Bladder Disease: Yes (CHOLELITHIASIS) - GENITOURINARY/GYNECOLOGICAL Hx Cervical Cancer: Yes (S/P CHEMO AND RADIATION 2010) Hx Sexually Transmitted Disorders: Yes Other/Comment: OVARIAN(?) OR CERVICAL(?) MASS X2 S/P EXCISION - PSYCHIATRIC Hx Depression: Yes Hx Substance Use: Yes (COCAINE ONCE A MONTH, LAST USE 09/29) Other/Comment: -SMOKES 1 PACK OF CIGARETTE IN ONE DAY ONCE A MONTH X25 YEARS. - DRINKS 6 BEERS IN ONE DAY, ONCE A MONTH X25 YEARS. SNORTS COCAINE ONE DAY ONCE A MONTH X25 YEARS - ANESTHESIA Hx Anesthesia: Yes Hx Anesthesia Reactions: No Hx Malignant Hyperthermia: No Has any member of the family had a problem w/ anesthesia?: No Meds Allergies/Adverse Reactions: Allergies Allergy/AdvReac Type Severity Reaction Status Date / Time No Known Allergies Allergy Verified 10/30/16 15:38 - Medications Medications: Current Medications Acetaminophen (Tylenol 325mg Tab) 650 mg PO Q4 PRN PRN Reason: .Pain (scale 4-10) Last Admin: 11/03/16 18:00 Dose: 650 mg Albuterol/Ipratropium (Duoneb 3 Mg/0.5 Mg (3 Ml) Ud) 3 ml INH RQ6 PRN PRN Reason: Shortness of Breath Last Admin: 11/04/16 18:11 Dose: 3 ml Aspirin (Aspirin Chewable) 81 mg PO DAILY [facility] Last Admin: 11/04/16 08:48 Dose: 81 mg Atorvastatin Calcium (Lipitor) 80 mg PO HS [facility] Last Admin: 11/04/16 21:20 Dose: 80 mg Azithromycin (Zithromax) 600 mg PO QWK@2100 [facility] Last Admin: 10/30/16 21:14 Dose: 600 mg Clopidogrel Bisulfate (Plavix) 75 mg PO DAILY [facility] Last Admin: 11/04/16 08:48 Dose: 75 mg Darunavir (Prezista) 800 mg PO DAILY [facility] Last Admin: 11/04/16 08:48 Dose: 800 mg Docusate Sodium (Colace) 100 mg PO BID [facility] Last Admin: 11/04/16 16:36 Dose: Not Given Enoxaparin Sodium (Lovenox) 40 mg SC DAILY [facility] PRN Reason: Protocol Last Admin: 11/04/16 08:48 Dose: 40 mg Famotidine (Pepcid) 20 mg PO BID [facility] Last Admin: 11/04/16 16:37 Dose: 20 mg Guaifenesin/Dextromethorphan (Robitussin Dm) 10 ml PO Q6 PRN PRN Reason: Cough Last Admin: 11/04/16 16:37 Dose: 10 ml Lactobacillus Acidophilus (Bacid Acidophilus) 1 cap PO DAILY [facility] Last Admin: 11/04/16 08:48 Dose: 1 cap Raltegravir (Isentress) 400 mg PO BID [facility] Last Admin: 11/04/16 16:37 Dose: 400 mg Ritonavir (Norvir) 100 mg PO DAILY [facility] Last Admin: 11/04/16 08:48 Dose: 100 mg Trimethoprim/Sulfamethoxazole (Bactrim Ds Tab) 1 tab PO MWF [facility] Last Admin: 11/02/16 08:16 Dose: 1 tab Zolpidem Tartrate (Ambien) 5 mg PO HS PRN PRN Reason: Insomnia Last Admin: 11/04/16 23:14 Dose: 5 mg Results - Vital Signs Recent Vital Signs: Last Vital Signs Temp 97.3 F L 11/04/16 19:59 Pulse 73 11/04/16 19:59 Resp 18 11/04/16 19:59 BP 122/80 11/04/16 19:59 Pulse Ox 99 11/04/16 19:59 - Labs Result Diagrams: 11/03/16 05:30 11/05/16 06:00 Labs: Laboratory Results - last 24 hr 11/05/16 06:00 Sodium 141 Potassium 4.2 Chloride 103 Carbon Dioxide 30 Anion Gap 12 BUN 18 H Creatinine 1.0 Est GFR ( Amer) > 60 Est GFR (Non-Af Amer) 57 Random Glucose 97 Calcium 9.5 Total Bilirubin 0.6 AST 66 H ALT 62 H D Alkaline Phosphatase 149 H Total Protein 8.8 H Albumin 3.9 Globulin 4.9 H Albumin/Globulin Ratio 0.8 L
[2016-11-05] MEDS: Lactobacillus Acidophilus 500 MU Cap PO SCH (08:37)
[2016-11-05] MEDS: Tmp-Smz 800 mg-160 mg DS Tab PO SCH (08:37)
[2016-11-05] MEDS: Enoxaparin 40 mg Syringe SC SCH (08:39)
--- NOTE | 2016-11-05 16:46 | CP.PCM.CON ---
History of Present Illness - History of Present Illness History of Present Illness: 61 year old female with PMH HIV+, CA/cervial and past chemotherapy was consulted for painful toenails x10. Patient is seen resting comfortably in bed, NAD, and AA0 x3. Patient states L>R foot. The left toenails hit the big toe and causes her pain especially with walking. She rates the pain moderate and describes the pain being localized to the toes bilaterally. The pain does not radiate. Patient denies n/v/sob/cp/chills or f. There are no other pedal complaint at this time. Past Patient History - Past Medical History & Family History Past Medical History?: Yes - Past Social History Smoking Status: Heavy Smoker > 10 Cigarettes Daily Alcohol: < 2 Drinks/Day Drugs: Cocaine Home Situation {Lives}: With Family (10 steps) - CARDIAC Hx Cardiac Disorders: No - PULMONARY Hx Asthma: Yes - NEUROLOGICAL HX Cerebrovascular Accident: Yes (09/2016) - HEENT Hx HEENT Problems: No - RENAL Hx Kidney Stones: Yes - ENDOCRINE/METABOLIC Hx Endocrine Disorders: No - HEMATOLOGICAL/ONCOLOGICAL Hx AIDS: Yes Hx Chemotherapy: Yes Hx Human Immunodeficiency Virus (HIV): Yes - INTEGUMENTARY Hx Dermatological Problems: No - MUSCULOSKELETAL/RHEUMATOLOGICAL Hx Falls: No Other/Comment: SPINAL SURGERY 2010 - GASTROINTESTINAL Hx Gall Bladder Disease: Yes (CHOLELITHIASIS) - GENITOURINARY/GYNECOLOGICAL Hx Cervical Cancer: Yes (S/P CHEMO AND RADIATION 2010) Hx Sexually Transmitted Disorders: Yes Other/Comment: OVARIAN(?) OR CERVICAL(?) MASS X2 S/P EXCISION - PSYCHIATRIC Hx Depression: Yes Hx Substance Use: Yes (COCAINE ONCE A MONTH, LAST USE 09/29) Other/Comment: -SMOKES 1 PACK OF CIGARETTE IN ONE DAY ONCE A MONTH X25 YEARS. - DRINKS 6 BEERS IN ONE DAY, ONCE A MONTH X25 YEARS. SNORTS COCAINE ONE DAY ONCE A MONTH X25 YEARS - ANESTHESIA Hx Anesthesia: Yes Hx Anesthesia Reactions: No Hx Malignant Hyperthermia: No Has any member of the family had a problem w/ anesthesia?: No Meds Allergies/Adverse Reactions: Allergies Allergy/AdvReac Type Severity Reaction Status Date / Time No Known Allergies Allergy Verified 10/30/16 15:38 - Medications Medications: Current Medications Acetaminophen (Tylenol 325mg Tab) 650 mg PO Q4 PRN PRN Reason: .Pain (scale 4-10) Last Admin: 11/05/16 15:29 Dose: 650 mg Albuterol/Ipratropium (Duoneb 3 Mg/0.5 Mg (3 Ml) Ud) 3 ml INH RQ6 PRN PRN Reason: Shortness of Breath Last Admin: 11/04/16 18:11 Dose: 3 ml Aspirin (Aspirin Chewable) 81 mg PO DAILY [facility] Last Admin: 11/05/16 08:37 Dose: 81 mg Atorvastatin Calcium (Lipitor) 80 mg PO HS [facility] Last Admin: 11/04/16 21:20 Dose: 80 mg Azithromycin (Zithromax) 600 mg PO QWK@2100 [facility] Last Admin: 10/30/16 21:14 Dose: 600 mg Clopidogrel Bisulfate (Plavix) 75 mg PO DAILY [facility] Last Admin: 11/05/16 08:40 Dose: 75 mg Darunavir (Prezista) 800 mg PO DAILY [facility] Last Admin: 11/05/16 08:41 Dose: 800 mg Docusate Sodium (Colace) 100 mg PO BID [facility] Last Admin: 11/05/16 16:21 Dose: Not Given Enoxaparin Sodium (Lovenox) 40 mg SC DAILY [facility] PRN Reason: Protocol Last Admin: 11/05/16 08:39 Dose: 40 mg Famotidine (Pepcid) 20 mg PO BID [facility] Last Admin: 11/05/16 16:21 Dose: 20 mg Guaifenesin/Dextromethorphan (Robitussin Dm) 10 ml PO Q6 PRN PRN Reason: Cough Last Admin: 11/04/16 16:37 Dose: 10 ml Lactobacillus Acidophilus (Bacid Acidophilus) 1 cap PO DAILY [facility] Last Admin: 11/05/16 08:37 Dose: 1 cap Raltegravir (Isentress) 400 mg PO BID [facility] Last Admin: 11/05/16 16:21 Dose: 400 mg Ritonavir (Norvir) 100 mg PO DAILY [facility] Last Admin: 11/05/16 08:40 Dose: 100 mg Trimethoprim/Sulfamethoxazole (Bactrim Ds Tab) 1 tab PO MWF [facility] Last Admin: 11/05/16 08:37 Dose: 1 tab Zolpidem Tartrate (Ambien) 5 mg PO HS PRN PRN Reason: Insomnia Last Admin: 11/04/16 23:14 Dose: 5 mg Physical Exam - Constitutional Appears: Well, Non-toxic, Toxic - Extremities Exam Additional comments: Vasc: DP 2/4 bilaterally, PT 1/4 bilaterally, Temperature is cool to cool, BRAND COORDINATOR > 3 seconds bilaterally, digit hair present Ortho: moderate pain elicited with palpation of the L nail plate 1, 2, and 4. mild pain elicited with palpation to R nail plates 1-5, L nail plates 3 and 5 Neuro: gross sensation intact bilaterally Derm: brittle, discolored, elongated, hyperkeratotic nails x3, elongated, brittle, discolored nails x7, no erythema, no open lesions, no clinical signs of infection noted - Neurological Exam Neurological exam: Alert, Oriented x3 - Psychiatric Exam Psychiatric exam: Normal Affect, Normal Mood Results - Vital Signs Recent Vital Signs: Last Vital Signs Temp 97.0 F L 11/05/16 07:46 Pulse 69 11/05/16 07:46 Resp 18 11/05/16 07:46 BP 97/61 L 11/05/16 07:46 Pulse Ox 98 11/05/16 07:46 - Labs Result Diagrams: 11/03/16 05:30 11/05/16 06:00 Labs: Laboratory Results - last 24 hr 11/05/16 06:00 Sodium 141 Potassium 4.2 Chloride 103 Carbon Dioxide 30 Anion Gap 12 BUN 18 H Creatinine 1.0 Est GFR ( Amer) > 60 Est GFR (Non-Af Amer) 57 Random Glucose 97 Calcium 9.5 Total Bilirubin 0.6 AST 66 H ALT 62 H D Alkaline Phosphatase 149 H Total Protein 8.8 H Albumin 3.9 Globulin 4.9 H Albumin/Globulin Ratio 0.8 L Assessment & Plan - Assessment and Plan (Free Text) Assessment: 61 year old female with PMH of HIV+, CA/cervical and past chemotherapy seen for enlongated, discolored, painful nails x7 and enlongated, discolored, hyperkeratotic painful nails x3 secondary to onychomymosis Plan: Patient was seen and examined. All questions/concerns addressed. Charts, vitals, and labs reviewed. Discussed plan with attending, Dr. Zuñiga. Elongated toenails were debrided to normal length and thickness x10 with a nail nipper without incident. Patient tolerated the procedure well. Compression stockings placed back on. Advised to continue wearing. Thank you for the consult.
--- NOTE | 2016-11-05 18:41 | CP.PCM.PN ---
Subjective - Date & Time of Evaluation Date of Evaluation: 11/05/16 Time of Evaluation: 11:30 - Subjective Subjective: Pt seen and examined. Denied any complaint but requesting podiatry consult to cut her toe nails Objective - Vital Signs/Intake and Output Vital Signs (last 24 hours): Temp Pulse Resp BP Pulse Ox 97.0 F L 69 18 97/61 L 98 11/05/16 07:46 11/05/16 07:46 11/05/16 07:46 11/05/16 07:46 11/05/16 07:46 - Medications Medications: Current Medications Acetaminophen (Tylenol 325mg Tab) 650 mg PO Q4 PRN PRN Reason: .Pain (scale 4-10) Last Admin: 11/05/16 15:29 Dose: 650 mg Albuterol/Ipratropium (Duoneb 3 Mg/0.5 Mg (3 Ml) Ud) 3 ml INH RQ6 PRN PRN Reason: Shortness of Breath Last Admin: 11/04/16 18:11 Dose: 3 ml Aspirin (Aspirin Chewable) 81 mg PO DAILY [facility] Last Admin: 11/05/16 08:37 Dose: 81 mg Atorvastatin Calcium (Lipitor) 80 mg PO HS [facility] Last Admin: 11/04/16 21:20 Dose: 80 mg Azithromycin (Zithromax) 600 mg PO QWK@2100 [facility] Last Admin: 10/30/16 21:14 Dose: 600 mg Clopidogrel Bisulfate (Plavix) 75 mg PO DAILY [facility] Last Admin: 11/05/16 08:40 Dose: 75 mg Darunavir (Prezista) 800 mg PO DAILY [facility] Last Admin: 11/05/16 08:41 Dose: 800 mg Docusate Sodium (Colace) 100 mg PO BID [facility] Last Admin: 11/05/16 16:21 Dose: Not Given Enoxaparin Sodium (Lovenox) 40 mg SC DAILY [facility] PRN Reason: Protocol Last Admin: 11/05/16 08:39 Dose: 40 mg Famotidine (Pepcid) 20 mg PO BID [facility] Last Admin: 11/05/16 16:21 Dose: 20 mg Guaifenesin/Dextromethorphan (Robitussin Dm) 10 ml PO Q6 PRN PRN Reason: Cough Last Admin: 11/04/16 16:37 Dose: 10 ml Lactobacillus Acidophilus (Bacid Acidophilus) 1 cap PO DAILY [facility] Last Admin: 11/05/16 08:37 Dose: 1 cap Raltegravir (Isentress) 400 mg PO BID [facility] Last Admin: 11/05/16 16:21 Dose: 400 mg Ritonavir (Norvir) 100 mg PO DAILY [facility] Last Admin: 11/05/16 08:40 Dose: 100 mg Trimethoprim/Sulfamethoxazole (Bactrim Ds Tab) 1 tab PO MWF [facility] Last Admin: 11/05/16 08:37 Dose: 1 tab Zolpidem Tartrate (Ambien) 5 mg PO HS PRN PRN Reason: Insomnia Last Admin: 11/04/16 23:14 Dose: 5 mg - Labs Labs: 11/03/16 05:30 11/05/16 06:00 - Constitutional Appears: No Acute Distress - Head Exam Head Exam: ATRAUMATIC - Eye Exam Eye Exam: absent: Scleral icterus - ENT Exam ENT Exam: Mucous Membranes Moist - Neck Exam Neck Exam: absent: Meningismus - Respiratory Exam Respiratory Exam: absent: Rhonchi, Wheezes, Respiratory Distress - Cardiovascular Exam Cardiovascular Exam: REGULAR RHYTHM, +S1, +S2 - GI/Abdominal Exam GI & Abdominal Exam: Soft. absent: Tenderness - Rectal Exam Rectal Exam: Deferred - Neurological Exam Neurological Exam: Alert, Oriented x3 - Psychiatric Exam Psychiatric exam: Normal Affect - Skin Skin Exam: Dry, Intact Assessment and Plan - Assessment and Plan (Free Text) Assessment: 61 yo female admitted at [facility] because of right sided weakness and slurred speech. She was found to have evolving left mike radiata infarct and was given TPA. She was later transferred to [facility] and admitted in Acute Rehab for PT/ OT. (1) Ischemic left MCA stroke continue ASA and Plavix Atorvastatin 80 mg PO daily through 11/16/16 then 40 mg PO daily as per [facility] records Neurology Dr. Frida Guevara Physiatry Dr. Zavala PT/OT (2) HIV (human immunodeficiency virus infection) Last CD 4 count was 173 on 10/04/16 as per [facility] records Dr. Christina Romero outpatient ID physician I spoke with ID Dr. Zeus Unger and he recommended prophylaxis with Bactrim DS 1 tab PO -- and Zythromax 600 mg 1 tab PO 1x/week (Saturday) Restarted on Prezista and Norvir and Raltegravir (3) Asthma Duoneb Q6H PRN for SOB/Wheezing (4) DVT Prophylaxis Lovenox 40mg SC daily
[2016-11-06 06:27] LABS: HEMOGLOBIN 12.6 g/dL (12.0-16.0); MEAN CELL VOLUME 87.9 fl (81.0-99.0); MEAN CORPUSCULAR HEMOGLOBIN 28.7 pg (27.0-31.0); MEAN CORPUSCULAR HGB CONC 32.7 g/dL (33.0-37.0); RBC 4.38 Mil/uL (3.80-5.20); RED CELL DISTRIBUTION WIDTH 13.8 % (11.5-14.5); WHITE BLOOD COUNT 3.8 K/uL (4.8-10.8)
[2016-11-06] MEDS: Enoxaparin 40 mg Syringe SC SCH (08:16)
[2016-11-06] MEDS: Lactobacillus Acidophilus 500 MU Cap PO SCH (08:20)
--- NOTE | 2016-11-06 13:15 | PSY.TMCNF ---
Nursing - Vital Signs Vital Signs (Last 8 hours): Vital Signs 11/06/16 07:33 Temperature 97.3 F L Pulse Rate 61 Respiratory 20 Rate Blood Pressure 100/67 O2 Sat by Pulse 96 Oximetry Pain: 0 - Precautions: Precautions: Fall Prevention, Seizure - Medications/Other Issues Comment: Continue on Lovenox SQ, Aspirin, Plavix - Consults Comment: seen by , , - Toileting Toileting: Minimal Assistance - Bladder Management Bladder Pattern: Normal Voiding Method: Toilet Bladder Management: Minimal Assistance Frequency of Accidents: none - Bowel Management Bowel Pattern: Normal Comment: on stool softener Bowel Management: Minimal Assistance Frequency of Accidents: none - Transfers Transfers: Minimal Assistance - ADL's ADL's: Minimal Assistance - Pain Management Comments: denies pain - Patient/Family Teaching Comments: safety measures, medications - Goals/Time Frame Comments: go home safely - Provider Provider: MARY Shipley Physical Therapy - Bed Mobility Bed Mobility: Supervision - Transfers Sit to Stand: Supervision, Verbal Cues, Contact Guard - Ambulation Level of Assistance: Supervision, Verbal Cues, Contact Guard, Minimal Assistance Distance (ft.): 125 Assistive Devices: Narrow base quad cane - Stair Negotiation Stairs: Level of Assistance: Verbal Cues, Contact Guard, Minimal Assistance Stairs: Assistive Devices: Left Handrail - Standing Balance Static Stand: Supervision Dynamic Stand: Contact Guard Assist, Minimal Assistance - Pain Pain (assessed during therapy session): 0 - Insight/Carryover Insight/Carryover: Fair - Patient/Family Education Comment: safety, therapy schedule, goals, POC, use of call reynolds, benefits of therapy, stroke recovery, DME, WC mobility, gait, recovery process - Assessment/Plan Assessment: Pt is agreeable to participate in recreation therapy sessions following encouragement. Pt has participated in modified alex card task and participated in group bingo task. Pt has demonstrated increase carryover of task rules and demonstrated increase attention to task during both tasks. Pt would benefit from recreation therapy to improve utilizing both hands throughout tasks and to improve leisure awareness level. - Goals Timeframe: 7 days Goals: 1 flight with single rail with CG. 200 feet with NBQC with CS. CS with NBQC. mod I with all bed/mat mobility - Provider Therapist: M License Number: [id number] Occupational Therapy - Arousal/Attention/Orientation Patient Orientation: Person, Place, Time, Appropriate to Age, Appropriate to Situation - ADL/IADL Self Feeding: Supervision, Verbal Cues, Set-up Help Grooming: Verbal Cues, Set-up Help, Minimal Assistance, Moderate Assistance Dressing-Upper Extremity: Verbal Cues, Set-up Help, Maximum Assistance Dressing-Lower Extremity: Verbal Cues, Set-up Help, Maximum Assistance Comment: Bathing: TBA - Sitting Balance Static Sitting: Contact Guard Assist Dynamic Sitting: Reaches across midline, Reaches out of base of support, Reaches within base of support, Minimal Assistance Comment: @ edge of bed, unsupported - Transfers Wheelchair to Bed Transfers: Verbal Cues, Set-up Help, Moderate Assistance Toilet Transfers: Verbal Cues, Set-up Help, Moderate Assistance Comment: Shower: TBA - Upper Extremity Status Right Upper Extremity Comment: PROM IS WNLS, but AROM is impaired - Pain Pain (assessed during therapy session): 0 - Insight/Carryover Insight/Carryover: Fair - Patient/Family Education Comment: safety, therapy schedule, goals, POC, use of call reynolds, benefits of therapy, stroke recovery, DME, WC mobility, gait, recovery process - Assessment/Plan Assessment: Pt is agreeable to participate in recreation therapy sessions following encouragement. Pt has participated in modified alex card task and participated in group bingo task. Pt has demonstrated increase carryover of task rules and demonstrated increase attention to task during both tasks. Pt would benefit from recreation therapy to improve utilizing both hands throughout tasks and to improve leisure awareness level. - Goals Timeframe: 7 days Goals: 1 flight with single rail with CG. 200 feet with NBQC with CS. CS with NBQC. mod I with all bed/mat mobility - Provider Therapist: Cammy Zuleta Speech Therapy - Consult Information Patient on Program: Yes Medical Diagnosis: CVA Treatment Diagnosis: mild cognitive-linguistic deficits - Assessment Memory Impairment: Mild - Plan Assessment: Pt is agreeable to participate in recreation therapy sessions following encouragement. Pt has participated in modified alex card task and participated in group bingo task. Pt has demonstrated increase carryover of task rules and demonstrated increase attention to task during both tasks. Pt would benefit from recreation therapy to improve utilizing both hands throughout tasks and to improve leisure awareness level. - Provider Therapist: Nolvia Yuen License Number: [id number] Recreational Therapy - Participation Participation: Participates in Individual and/or Group Sessions - Attendance Attendance: 3-5 times per week - Activities Leisure Activities: Television - Socialization Level of Socialization: Initiates/interacts freely with care givers and peer - Assessment Assessment/Plan: Pt is agreeable to participate in recreation therapy sessions following encouragement. Pt has participated in modified alex card task and participated in group bingo task. Pt has demonstrated increase carryover of task rules and demonstrated increase attention to task during both tasks. Pt would benefit from recreation therapy to improve utilizing both hands throughout tasks and to improve leisure awareness level. Problems Currently Limiting Participation: R side weakness (pt is R hand dominant), decrease leisure awareness level, hx of ETOH use, decrease leisure awareness level Goals and Time Frame: Pt will be encouraged to participate in 1:1 and group recreation therapy sessions 3-5x week to improve direction following, leisure awareness level, attention to task, utilizing R hand, and leisure education on leisure alternatives. - Provider Therapist: Radha Valles, [employer] #[id number] Nutrition - Current Diet Current Diet/ Supplement/ Feedings: 2 gram Na low fat/low cholesterol diet - Appetite Percent Meal Consumed: 75-100% - Comments Comments: safety measures, medications - Assessment/Goals/Time Frame Assessment/Goals/Time Frame: Continue on Lovenox SQ, Aspirin, Plavix - Provider Provider: Ines Page RD Case Management - Discharge Plan Discharge Plan: Home with significant other/family Rehabilitation Plan - Treatment Plan Treatment Plan: Physical Therapy, Occupational Therapy, Speech, Dietary, Patient /Family Education - Discharge Plan Estimated Date of Discharge: 11/17/16 Discharge to: Home
--- NOTE | 2016-11-06 16:17 | CP.PCM.PN ---
Subjective - Date & Time of Evaluation Date of Evaluation: 11/06/16 Time of Evaluation: 16:16 - Subjective Subjective: Patient seen in room denies sob/cp denies N/V right upper extremity weakness is the primary issue in a safe and independent discharge home continue current care she is well motivated Objective - Vital Signs/Intake and Output Vital Signs (last 24 hours): Temp Pulse Resp BP Pulse Ox 97.3 F L 61 20 100/67 96 11/06/16 07:33 11/06/16 07:33 11/06/16 07:33 11/06/16 07:33 11/06/16 07:33 - Medications Medications: Current Medications Acetaminophen (Tylenol 325mg Tab) 650 mg PO Q4 PRN PRN Reason: .Pain (scale 4-10) Last Admin: 11/05/16 20:56 Dose: 650 mg Albuterol/Ipratropium (Duoneb 3 Mg/0.5 Mg (3 Ml) Ud) 3 ml INH RQ6 PRN PRN Reason: Shortness of Breath Last Admin: 11/04/16 18:11 Dose: 3 ml Aspirin (Aspirin Chewable) 81 mg PO DAILY [facility] Last Admin: 11/06/16 08:15 Dose: 81 mg Atorvastatin Calcium (Lipitor) 80 mg PO HS [facility] Last Admin: 11/05/16 21:00 Dose: 80 mg Azithromycin (Zithromax) 600 mg PO QWK@2100 [facility] Last Admin: 10/30/16 21:14 Dose: 600 mg Clopidogrel Bisulfate (Plavix) 75 mg PO DAILY [facility] Last Admin: 11/06/16 08:15 Dose: 75 mg Darunavir (Prezista) 800 mg PO DAILY [facility] Last Admin: 11/06/16 08:19 Dose: 800 mg Docusate Sodium (Colace) 100 mg PO BID [facility] Last Admin: 11/06/16 08:17 Dose: 100 mg Enoxaparin Sodium (Lovenox) 40 mg SC DAILY [facility] PRN Reason: Protocol Last Admin: 11/06/16 08:16 Dose: 40 mg Famotidine (Pepcid) 20 mg PO BID [facility] Last Admin: 11/06/16 08:19 Dose: 20 mg Guaifenesin/Dextromethorphan (Robitussin Dm) 10 ml PO Q6 PRN PRN Reason: Cough Last Admin: 11/04/16 16:37 Dose: 10 ml Lactobacillus Acidophilus (Bacid Acidophilus) 1 cap PO DAILY [facility] Last Admin: 11/06/16 08:20 Dose: 1 cap Raltegravir (Isentress) 400 mg PO BID [facility] Last Admin: 11/06/16 08:16 Dose: 400 mg Ritonavir (Norvir) 100 mg PO DAILY [facility] Last Admin: 11/06/16 08:16 Dose: 100 mg Trimethoprim/Sulfamethoxazole (Bactrim Ds Tab) 1 tab PO [facility] Last Admin: 11/05/16 08:37 Dose: 1 tab Zolpidem Tartrate (Ambien) 5 mg PO HS PRN PRN Reason: Insomnia Last Admin: 11/05/16 22:31 Dose: 5 mg - Labs Labs: 11/06/16 05:20 11/05/16 06:00
[2016-11-07] MEDS: Tmp-Smz 800 mg-160 mg DS Tab PO SCH (08:37)
[2016-11-07] MEDS: Enoxaparin 40 mg Syringe SC SCH (08:38)
[2016-11-07] MEDS: Lactobacillus Acidophilus 500 MU Cap PO SCH (08:40)
[2016-11-07] MEDS: guaiFENesin DM 200 mg-20 mg/10 ml UD PO PRN ×2 (08:42→16:52)
--- NOTE | 2016-11-07 12:40 | CP.PCM.PN ---
Subjective - Date & Time of Evaluation Date of Evaluation: 11/07/16 Time of Evaluation: 12:39 - Subjective Subjective: Patient seen in room has some nausea denies sob/cp vitals are stable, afebrile doing well in therapy will give prn compazine and get ua c&s. has dysuria Objective - Vital Signs/Intake and Output Vital Signs (last 24 hours): Temp Pulse Resp BP Pulse Ox 96.8 F L 84 20 111/71 97 11/07/16 12:36 11/07/16 12:36 11/07/16 12:36 11/07/16 12:36 11/07/16 12:36 - Medications Medications: Current Medications Acetaminophen (Tylenol 325mg Tab) 650 mg PO Q4 PRN PRN Reason: .Pain (scale 4-10) Last Admin: 11/05/16 20:56 Dose: 650 mg Albuterol/Ipratropium (Duoneb 3 Mg/0.5 Mg (3 Ml) Ud) 3 ml INH RQ6 PRN PRN Reason: Shortness of Breath Last Admin: 11/04/16 18:11 Dose: 3 ml Aspirin (Aspirin Chewable) 81 mg PO DAILY [facility] Last Admin: 11/07/16 08:38 Dose: 81 mg Atorvastatin Calcium (Lipitor) 80 mg PO HS [facility] Last Admin: 11/06/16 21:00 Dose: 80 mg Azithromycin (Zithromax) 600 mg PO QWK@2100 [facility] Last Admin: 11/06/16 21:00 Dose: 600 mg Clopidogrel Bisulfate (Plavix) 75 mg PO DAILY [facility] Last Admin: 11/07/16 08:37 Dose: 75 mg Darunavir (Prezista) 800 mg PO DAILY [facility] Last Admin: 11/07/16 08:37 Dose: 800 mg Docusate Sodium (Colace) 100 mg PO BID [facility] Last Admin: 11/07/16 08:37 Dose: 100 mg Enoxaparin Sodium (Lovenox) 40 mg SC DAILY [facility] PRN Reason: Protocol Last Admin: 11/07/16 08:38 Dose: 40 mg Famotidine (Pepcid) 20 mg PO BID [facility] Last Admin: 11/07/16 08:37 Dose: 20 mg Guaifenesin/Dextromethorphan (Robitussin Dm) 10 ml PO Q6 PRN PRN Reason: Cough Last Admin: 11/07/16 08:42 Dose: 10 ml Lactobacillus Acidophilus (Bacid Acidophilus) 1 cap PO DAILY [facility] Last Admin: 11/07/16 08:40 Dose: 1 cap Prochlorperazine (Compazine) 10 mg PO Q6 PRN PRN Reason: Nausea/Vomiting Raltegravir (Isentress) 400 mg PO BID [facility] Last Admin: 11/07/16 08:37 Dose: 400 mg Ritonavir (Norvir) 100 mg PO DAILY [facility] Last Admin: 11/07/16 08:38 Dose: 100 mg Trimethoprim/Sulfamethoxazole (Bactrim Ds Tab) 1 tab PO MWF [facility] Last Admin: 11/07/16 08:37 Dose: 1 tab Zolpidem Tartrate (Ambien) 5 mg PO HS PRN PRN Reason: Insomnia Last Admin: 11/06/16 22:30 Dose: 5 mg - Labs Labs: 11/06/16 05:20 11/05/16 06:00
--- NOTE | 2016-11-07 16:37 | CP.PCM.PN ---
Subjective - Date & Time of Evaluation Date of Evaluation: 11/07/16 Time of Evaluation: 11:40 - Subjective Subjective: Pt seen and examined. Complained of burning sensation when urinating. Objective - Vital Signs/Intake and Output Vital Signs (last 24 hours): Temp Pulse Resp BP Pulse Ox 96.8 F L 84 20 111/71 97 11/07/16 12:36 11/07/16 12:36 11/07/16 12:36 11/07/16 12:36 11/07/16 12:36 - Medications Medications: Current Medications Acetaminophen (Tylenol 325mg Tab) 650 mg PO Q4 PRN PRN Reason: .Pain (scale 4-10) Last Admin: 11/05/16 20:56 Dose: 650 mg Albuterol/Ipratropium (Duoneb 3 Mg/0.5 Mg (3 Ml) Ud) 3 ml INH RQ6 PRN PRN Reason: Shortness of Breath Last Admin: 11/04/16 18:11 Dose: 3 ml Aspirin (Aspirin Chewable) 81 mg PO DAILY [facility] Last Admin: 11/07/16 08:38 Dose: 81 mg Atorvastatin Calcium (Lipitor) 80 mg PO HS [facility] Last Admin: 11/06/16 21:00 Dose: 80 mg Azithromycin (Zithromax) 600 mg PO QWK@2100 [facility] Last Admin: 11/06/16 21:00 Dose: 600 mg Clopidogrel Bisulfate (Plavix) 75 mg PO DAILY [facility] Last Admin: 11/07/16 08:37 Dose: 75 mg Darunavir (Prezista) 800 mg PO DAILY [facility] Last Admin: 11/07/16 08:37 Dose: 800 mg Docusate Sodium (Colace) 100 mg PO BID [facility] Last Admin: 11/07/16 08:37 Dose: 100 mg Enoxaparin Sodium (Lovenox) 40 mg SC DAILY [facility] PRN Reason: Protocol Last Admin: 11/07/16 08:38 Dose: 40 mg Famotidine (Pepcid) 20 mg PO BID [facility] Last Admin: 11/07/16 08:37 Dose: 20 mg Guaifenesin/Dextromethorphan (Robitussin Dm) 10 ml PO Q6 PRN PRN Reason: Cough Last Admin: 11/07/16 08:42 Dose: 10 ml Lactobacillus Acidophilus (Bacid Acidophilus) 1 cap PO DAILY [facility] Last Admin: 11/07/16 08:40 Dose: 1 cap Prochlorperazine (Compazine) 10 mg PO Q6 PRN PRN Reason: Nausea/Vomiting Last Admin: 11/07/16 14:06 Dose: 10 mg Raltegravir (Isentress) 400 mg PO BID [facility] Last Admin: 11/07/16 08:37 Dose: 400 mg Ritonavir (Norvir) 100 mg PO DAILY [facility] Last Admin: 11/07/16 08:38 Dose: 100 mg Trimethoprim/Sulfamethoxazole (Bactrim Ds Tab) 1 tab PO MWF [facility] Last Admin: 11/07/16 08:37 Dose: 1 tab Zolpidem Tartrate (Ambien) 5 mg PO HS PRN PRN Reason: Insomnia Last Admin: 11/06/16 22:30 Dose: 5 mg - Labs Labs: 11/06/16 05:20 11/05/16 06:00 - Constitutional Appears: No Acute Distress - Head Exam Head Exam: ATRAUMATIC - Eye Exam Eye Exam: absent: Scleral icterus - ENT Exam ENT Exam: Mucous Membranes Moist - Neck Exam Neck Exam: absent: Meningismus - Respiratory Exam Respiratory Exam: absent: Rhonchi, Wheezes, Respiratory Distress - Cardiovascular Exam Cardiovascular Exam: REGULAR RHYTHM, +S1, +S2 - GI/Abdominal Exam GI & Abdominal Exam: Soft. absent: Tenderness - Rectal Exam Rectal Exam: Deferred - Neurological Exam Neurological Exam: Alert, Oriented x3 - Psychiatric Exam Psychiatric exam: Normal Affect - Skin Skin Exam: Dry, Intact Assessment and Plan - Assessment and Plan (Free Text) Assessment: 61 yo female admitted at [facility] [place] because of right sided weakness and slurred speech. She was found to have evolving left mike radiata infarct and was given TPA. She was later transferred to [facility] and admitted in Acute Rehab for PT/ OT. (1) Ischemic left MCA stroke continue ASA and Plavix Atorvastatin 80 mg PO daily through 11/16/16 then 40 mg PO daily as per [facility] [place] Neurology Dr. Frida Guevara Physiatry Dr. Zavala PT/OT (2) HIV (human immunodeficiency virus infection) Last CD 4 count was 173 on 10/04/16 as per [facility] [place] records being followed by Dr. Christina Romero, ID physician, as outpatient continue prophylaxis with Bactrim DS 1 tab PO --F and Zythromax 600 mg 1 tab PO 1x/week (Saturday) Restarted on Prezista and Norvir and Raltegravir (3) Asthma Duoneb Q6H PRN for SOB/Wheezing (4) DVT Prophylaxis Lovenox 40mg SC daily
[2016-11-07 19:28] LABS: SQUAMOUS EPITHIAL 1 /hpf (0-5); URINE BILIRUBIN NEGATIVE (NEGATIVE); URINE BLOOD MODERATE (NEGATIVE); URINE CLARITY CLEAR (Clear); URINE COLOR STRAW (YELLOW); URINE GLUCOSE (UA) NEG (Normal); URINE LEUKOCYTE ESTERASE NEG Leu/uL (Negative); URINE NITRATE NEGATIVE (NEGATIVE); URINE PROTEIN NEGATIVE (NEGATIVE); URINE UROBILINOGEN 0.2-1.0 mg/dL (0.2-1.0)
[2016-11-07 19:35] LABS: URINE BACTERIA FEW (<OCC)
[2016-11-08] MEDS: Enoxaparin 40 mg Syringe SC SCH (08:28)
[2016-11-08] MEDS: Lactobacillus Acidophilus 500 MU Cap PO SCH (08:28)
--- NOTE | 2016-11-08 17:56 | CP.PCM.PN ---
Subjective - Date & Time of Evaluation Date of Evaluation: 11/08/16 Time of Evaluation: 17:55 - Subjective Subjective: Patient seen in room in good spirits did quite well in therapies today ambulating 150' with single hand held device continue current care Objective - Vital Signs/Intake and Output Vital Signs (last 24 hours): Temp Pulse Resp BP Pulse Ox 97.7 F 67 21 94/66 L 96 11/08/16 08:12 11/08/16 08:12 11/08/16 08:12 11/08/16 08:12 11/08/16 08:12 - Medications Medications: Current Medications Acetaminophen (Tylenol 325mg Tab) 650 mg PO Q4 PRN PRN Reason: .Pain (scale 4-10) Last Admin: 11/05/16 20:56 Dose: 650 mg Albuterol/Ipratropium (Duoneb 3 Mg/0.5 Mg (3 Ml) Ud) 3 ml INH RQ6 PRN PRN Reason: Shortness of Breath Last Admin: 11/04/16 18:11 Dose: 3 ml Aspirin (Aspirin Chewable) 81 mg PO DAILY [facility] Last Admin: 11/08/16 08:28 Dose: 81 mg Atorvastatin Calcium (Lipitor) 80 mg PO HS [facility] Last Admin: 11/07/16 21:09 Dose: 80 mg Azithromycin (Zithromax) 600 mg PO QWK@2100 [facility] Last Admin: 11/06/16 21:00 Dose: 600 mg Clopidogrel Bisulfate (Plavix) 75 mg PO DAILY [facility] Last Admin: 11/08/16 08:28 Dose: 75 mg Darunavir (Prezista) 800 mg PO DAILY [facility] Last Admin: 11/08/16 08:28 Dose: 800 mg Docusate Sodium (Colace) 100 mg PO BID [facility] Last Admin: 11/08/16 16:53 Dose: Not Given Enoxaparin Sodium (Lovenox) 40 mg SC DAILY [facility] PRN Reason: Protocol Last Admin: 11/08/16 08:28 Dose: 40 mg Famotidine (Pepcid) 20 mg PO BID [facility] Last Admin: 11/08/16 16:54 Dose: 20 mg Guaifenesin/Dextromethorphan (Robitussin Dm) 10 ml PO Q6 PRN PRN Reason: Cough Last Admin: 11/07/16 16:52 Dose: 10 ml Lactobacillus Acidophilus (Bacid Acidophilus) 1 cap PO DAILY [facility] Last Admin: 11/08/16 08:28 Dose: 1 cap Prochlorperazine (Compazine) 10 mg PO Q6 PRN PRN Reason: Nausea/Vomiting Last Admin: 11/07/16 14:06 Dose: 10 mg Raltegravir (Isentress) 400 mg PO BID [facility] Last Admin: 11/08/16 16:54 Dose: 400 mg Ritonavir (Norvir) 100 mg PO DAILY [facility] Last Admin: 11/08/16 08:28 Dose: 100 mg Trimethoprim/Sulfamethoxazole (Bactrim Ds Tab) 1 tab PO MWF [facility] Last Admin: 11/07/16 08:37 Dose: 1 tab Zolpidem Tartrate (Ambien) 5 mg PO HS PRN PRN Reason: Insomnia Last Admin: 11/07/16 23:25 Dose: 5 mg - Labs Labs: 11/06/16 05:20 11/05/16 06:00
[2016-11-09 07:34] LABS: HEMOGLOBIN 12.2 g/dL (12.0-16.0); MEAN CELL VOLUME 87.5 fl (81.0-99.0); MEAN CORPUSCULAR HEMOGLOBIN 29.2 pg (27.0-31.0); MEAN CORPUSCULAR HGB CONC 33.4 g/dL (33.0-37.0); RBC 4.19 Mil/uL (3.80-5.20); RED CELL DISTRIBUTION WIDTH 13.4 % (11.5-14.5); WHITE BLOOD COUNT 3.5 K/uL (4.8-10.8)
[2016-11-09] MEDS: Lactobacillus Acidophilus 500 MU Cap PO SCH (08:35)
[2016-11-09] MEDS: Tmp-Smz 800 mg-160 mg DS Tab PO SCH (08:35)
[2016-11-09] MEDS: Enoxaparin 40 mg Syringe SC SCH (08:35)
--- NOTE | 2016-11-09 09:33 | CP.PCM.PN ---
Subjective - Date & Time of Evaluation Date of Evaluation: 11/09/16 Time of Evaluation: 11:30 - Subjective Subjective: Patient seen and examined bedside. Feeling well. Hemodynamically stable. Participating with PT.No acute issues overnight Objective - Vital Signs/Intake and Output Vital Signs (last 24 hours): Temp Pulse Resp BP Pulse Ox 97.5 F L 65 18 95/63 L 95 11/09/16 07:57 11/09/16 07:57 11/09/16 07:57 11/09/16 07:57 11/09/16 07:57 - Medications Medications: Current Medications Acetaminophen (Tylenol 325mg Tab) 650 mg PO Q4 PRN PRN Reason: .Pain (scale 4-10) Last Admin: 11/05/16 20:56 Dose: 650 mg Albuterol/Ipratropium (Duoneb 3 Mg/0.5 Mg (3 Ml) Ud) 3 ml INH RQ6 PRN PRN Reason: Shortness of Breath Last Admin: 11/04/16 18:11 Dose: 3 ml Aspirin (Aspirin Chewable) 81 mg PO DAILY [facility] Last Admin: 11/09/16 08:35 Dose: 81 mg Atorvastatin Calcium (Lipitor) 80 mg PO HS [facility] Last Admin: 11/08/16 21:16 Dose: 80 mg Azithromycin (Zithromax) 600 mg PO QWK@2100 [facility] Last Admin: 11/06/16 21:00 Dose: 600 mg Clopidogrel Bisulfate (Plavix) 75 mg PO DAILY [facility] Last Admin: 11/09/16 08:35 Dose: 75 mg Darunavir (Prezista) 800 mg PO DAILY [facility] Last Admin: 11/09/16 08:35 Dose: 800 mg Docusate Sodium (Colace) 100 mg PO BID [facility] Last Admin: 11/09/16 08:35 Dose: Not Given Enoxaparin Sodium (Lovenox) 40 mg SC DAILY [facility] PRN Reason: Protocol Last Admin: 11/09/16 08:35 Dose: 40 mg Famotidine (Pepcid) 20 mg PO BID [facility] Last Admin: 11/09/16 08:35 Dose: 20 mg Guaifenesin/Dextromethorphan (Robitussin Dm) 10 ml PO Q6 PRN PRN Reason: Cough Last Admin: 11/07/16 16:52 Dose: 10 ml Lactobacillus Acidophilus (Bacid Acidophilus) 1 cap PO DAILY [facility] Last Admin: 11/09/16 08:35 Dose: 1 cap Prochlorperazine (Compazine) 10 mg PO Q6 PRN PRN Reason: Nausea/Vomiting Last Admin: 11/07/16 14:06 Dose: 10 mg Raltegravir (Isentress) 400 mg PO BID [facility] Last Admin: 11/09/16 08:35 Dose: 400 mg Ritonavir (Norvir) 100 mg PO DAILY [facility] Last Admin: 11/09/16 08:35 Dose: 100 mg Trimethoprim/Sulfamethoxazole (Bactrim Ds Tab) 1 tab PO MWF [facility] Last Admin: 11/09/16 08:35 Dose: 1 tab Zolpidem Tartrate (Ambien) 5 mg PO HS PRN PRN Reason: Insomnia Last Admin: 11/08/16 23:25 Dose: 5 mg - Labs Labs: 11/09/16 06:30 11/05/16 06:00 - Constitutional Appears: Non-toxic, No Acute Distress - Head Exam Head Exam: ATRAUMATIC, NORMAL INSPECTION, NORMOCEPHALIC - Eye Exam Eye Exam: EOMI, Normal appearance, PERRL Pupil Exam: NORMAL ACCOMODATION - ENT Exam ENT Exam: Mucous Membranes Moist, Normal Exam - Neck Exam Neck Exam: Full ROM, Normal Inspection - Respiratory Exam Respiratory Exam: Clear to Ausculation Bilateral, NORMAL BREATHING PATTERN. absent: Rales, Rhonchi, Wheezes - Cardiovascular Exam Cardiovascular Exam: REGULAR RHYTHM, RRR, +S1, +S2. absent: JVD - GI/Abdominal Exam GI & Abdominal Exam: Soft, Normal Bowel Sounds. absent: Distended, Guarding, Tenderness, Rebound - Rectal Exam Rectal Exam: Deferred - Extremities Exam Extremities Exam: Full ROM, Normal Capillary Refill, Normal Inspection. absent : Calf Tenderness, Pedal Edema - Back Exam Back Exam: NORMAL INSPECTION - Neurological Exam Neurological Exam: Alert, Awake, Oriented x3 Additional comments: left facial droop - Psychiatric Exam Psychiatric exam: Normal Affect - Skin Skin Exam: Dry, Intact, Normal Color, Warm Assessment and Plan - Assessment and Plan (Free Text) Assessment: 61 yo female admitted at [facility] [place] [facility] [place] because of right sided weakness and slurred speech. She was found to have evolving left mike radiata infarct and was given TPA. She was later transferred to [facility] and admitted in Acute Rehab for PT/ OT. Patient participating well with PT For discharge in AM 1.Ischemic left MCA stroke stable continue ASA and Plavix Atorvastatin 80 mg PO daily through 11/16/16 then 40 mg PO daily as per [facility] [place] records Neurology Dr. Frida Guevara Physiatry Dr. Zavala consult appreciated PT/OT consulted . participated with PT and doing well For discharge in AM 2. HIV (human immunodeficiency virus infection) Last CD 4 count was 173 on 10/04/16 as per [facility] [place] records being followed by Dr. Christina Romero, ID physician, as outpatient continue prophylaxis with Bactrim DS 1 tab PO and Zithromax 600 mg 1 tab PO 1x/week (Saturday) Restarted on Prezista and Norvir and Raltegravir 3.) Asthma Duoneb Q6H PRN for SOB/Wheezing stable 4. DVT Prophylaxis Lovenox 40mg SC daily
[2016-11-09 20:38] LABS: HIV-1 GENOTYPE DETECTED
[2016-11-10] MEDS: Lactobacillus Acidophilus 500 MU Cap PO SCH (08:41)
[2016-11-10] MEDS: Enoxaparin 40 mg Syringe SC SCH (08:41)
[2016-11-10] MEDS: guaiFENesin DM 200 mg-20 mg/10 ml UD PO PRN (11:33)
[2016-11-11] MEDS: Lactobacillus Acidophilus 500 MU Cap PO SCH (08:52)
[2016-11-11] MEDS: Enoxaparin 40 mg Syringe SC SCH (08:53)
--- NOTE | 2016-11-11 14:18 | CP.PCM.PN ---
Subjective - Date & Time of Evaluation Date of Evaluation: 11/11/16 Time of Evaluation: 14:18 - Subjective Subjective: I D NOTE REVIEWED LABS INCLUDING HIV GENOTYPING WILL ORDER CD4 COUNT TODAY WHEN DISCHARGED ,WOULD GIVE TIVICAY OR THE ONCE A DAY ISENTRESS c PREZISTA/NOVIR Objective - Vital Signs/Intake and Output Vital Signs (last 24 hours): Temp Pulse Resp BP Pulse Ox 97.9 F 65 19 100/60 99 11/11/16 08:00 11/11/16 08:00 11/11/16 08:00 11/11/16 08:00 11/11/16 08:00 - Medications Medications: Current Medications Acetaminophen (Tylenol 325mg Tab) 650 mg PO Q4 PRN PRN Reason: .Pain (scale 4-10) Last Admin: 11/05/16 20:56 Dose: 650 mg Albuterol/Ipratropium (Duoneb 3 Mg/0.5 Mg (3 Ml) Ud) 3 ml INH RQ6 PRN PRN Reason: Shortness of Breath Last Admin: 11/04/16 18:11 Dose: 3 ml Aspirin (Aspirin Chewable) 81 mg PO DAILY [facility] Last Admin: 11/11/16 08:50 Dose: 81 mg Atorvastatin Calcium (Lipitor) 80 mg PO HS [facility] Last Admin: 11/10/16 21:16 Dose: 80 mg Azithromycin (Zithromax) 600 mg PO QWK@2100 [facility] Last Admin: 11/06/16 21:00 Dose: 600 mg Clopidogrel Bisulfate (Plavix) 75 mg PO DAILY [facility] Last Admin: 11/11/16 08:50 Dose: 75 mg Darunavir (Prezista) 800 mg PO DAILY [facility] Last Admin: 11/11/16 08:50 Dose: 800 mg Docusate Sodium (Colace) 100 mg PO BID [facility] Last Admin: 11/11/16 08:51 Dose: 100 mg Enoxaparin Sodium (Lovenox) 40 mg SC DAILY [facility] PRN Reason: Protocol Last Admin: 11/11/16 08:53 Dose: 40 mg Famotidine (Pepcid) 20 mg PO BID [facility] Last Admin: 11/11/16 08:50 Dose: 20 mg Guaifenesin/Dextromethorphan (Robitussin Dm) 10 ml PO Q6 PRN PRN Reason: Cough Last Admin: 11/10/16 11:33 Dose: 10 ml Lactobacillus Acidophilus (Bacid Acidophilus) 1 cap PO DAILY [facility] Last Admin: 11/11/16 08:52 Dose: 1 cap Prochlorperazine (Compazine) 10 mg PO Q6 PRN PRN Reason: Nausea/Vomiting Last Admin: 11/09/16 11:56 Dose: 10 mg Raltegravir (Isentress) 400 mg PO BID [facility] Last Admin: 11/11/16 08:50 Dose: 400 mg Ritonavir (Norvir) 100 mg PO DAILY [facility] Last Admin: 11/11/16 08:50 Dose: 100 mg Trimethoprim/Sulfamethoxazole (Bactrim Ds Tab) 1 tab PO MWF [facility] Last Admin: 11/09/16 08:35 Dose: 1 tab Zolpidem Tartrate (Ambien) 5 mg PO HS PRN PRN Reason: Insomnia Last Admin: 11/10/16 22:02 Dose: 5 mg - Labs Labs: 11/09/16 06:30 11/05/16 06:00
--- NOTE | 2016-11-11 14:40 | CP.PCM.PN ---
Subjective - Date & Time of Evaluation Date of Evaluation: 11/11/16 Time of Evaluation: 12:40 - Subjective Subjective: I D(ADDENDUM) HLA B57 IS NEGATIVE (TEST JUST RECEIVED) THUS SHE CAN TAKE ZIAGEN WHICH IS A COMPONENT OF TRIUMEQ(EPZICOM & TIVICAY) TRIUMEQ IS 1 TAB PO DAILY this is another option for treatment upon discharge as is single pill treatment Objective - Vital Signs/Intake and Output Vital Signs (last 24 hours): Temp Pulse Resp BP Pulse Ox 97.9 F 65 19 100/60 99 11/11/16 08:00 11/11/16 08:00 11/11/16 08:00 11/11/16 08:00 11/11/16 08:00 - Medications Medications: Current Medications Acetaminophen (Tylenol 325mg Tab) 650 mg PO Q4 PRN PRN Reason: .Pain (scale 4-10) Last Admin: 11/05/16 20:56 Dose: 650 mg Albuterol/Ipratropium (Duoneb 3 Mg/0.5 Mg (3 Ml) Ud) 3 ml INH RQ6 PRN PRN Reason: Shortness of Breath Last Admin: 11/04/16 18:11 Dose: 3 ml Aspirin (Aspirin Chewable) 81 mg PO DAILY [facility] Last Admin: 11/11/16 08:50 Dose: 81 mg Atorvastatin Calcium (Lipitor) 80 mg PO HS [facility] Last Admin: 11/10/16 21:16 Dose: 80 mg Azithromycin (Zithromax) 600 mg PO QWK@2100 [facility] Last Admin: 11/06/16 21:00 Dose: 600 mg Clopidogrel Bisulfate (Plavix) 75 mg PO DAILY [facility] Last Admin: 11/11/16 08:50 Dose: 75 mg Darunavir (Prezista) 800 mg PO DAILY [facility] Last Admin: 11/11/16 08:50 Dose: 800 mg Docusate Sodium (Colace) 100 mg PO BID [facility] Last Admin: 11/11/16 08:51 Dose: 100 mg Enoxaparin Sodium (Lovenox) 40 mg SC DAILY [facility] PRN Reason: Protocol Last Admin: 11/11/16 08:53 Dose: 40 mg Famotidine (Pepcid) 20 mg PO BID [facility] Last Admin: 11/11/16 08:50 Dose: 20 mg Guaifenesin/Dextromethorphan (Robitussin Dm) 10 ml PO Q6 PRN PRN Reason: Cough Last Admin: 11/10/16 11:33 Dose: 10 ml Lactobacillus Acidophilus (Bacid Acidophilus) 1 cap PO DAILY [facility] Last Admin: 11/11/16 08:52 Dose: 1 cap Prochlorperazine (Compazine) 10 mg PO Q6 PRN PRN Reason: Nausea/Vomiting Last Admin: 11/09/16 11:56 Dose: 10 mg Raltegravir (Isentress) 400 mg PO BID [facility] Last Admin: 11/11/16 08:50 Dose: 400 mg Ritonavir (Norvir) 100 mg PO DAILY [facility] Last Admin: 11/11/16 08:50 Dose: 100 mg Trimethoprim/Sulfamethoxazole (Bactrim Ds Tab) 1 tab PO [facility] [place] Last Admin: 11/09/16 08:35 Dose: 1 tab Zolpidem Tartrate (Ambien) 5 mg PO HS PRN PRN Reason: Insomnia Last Admin: 11/10/16 22:02 Dose: 5 mg - Labs Labs: 11/09/16 06:30 11/05/16 06:00
--- NOTE | 2016-11-11 15:00 | CP.PCM.PN ---
Subjective - Date & Time of Evaluation Date of Evaluation: 11/10/16 Time of Evaluation: 10:00 - Subjective Subjective: no acute complaints at present Objective - Vital Signs/Intake and Output Vital Signs (last 24 hours): Temp Pulse Resp BP Pulse Ox 97.9 F 65 19 100/60 99 11/11/16 08:00 11/11/16 08:00 11/11/16 08:00 11/11/16 08:00 11/11/16 08:00 - Medications Medications: Current Medications Acetaminophen (Tylenol 325mg Tab) 650 mg PO Q4 PRN PRN Reason: .Pain (scale 4-10) Last Admin: 11/05/16 20:56 Dose: 650 mg Albuterol/Ipratropium (Duoneb 3 Mg/0.5 Mg (3 Ml) Ud) 3 ml INH RQ6 PRN PRN Reason: Shortness of Breath Last Admin: 11/04/16 18:11 Dose: 3 ml Aspirin (Aspirin Chewable) 81 mg PO DAILY [facility] Last Admin: 11/11/16 08:50 Dose: 81 mg Atorvastatin Calcium (Lipitor) 80 mg PO HS [facility] Last Admin: 11/10/16 21:16 Dose: 80 mg Azithromycin (Zithromax) 600 mg PO QWK@2100 [facility] Last Admin: 11/06/16 21:00 Dose: 600 mg Clopidogrel Bisulfate (Plavix) 75 mg PO DAILY [facility] Last Admin: 11/11/16 08:50 Dose: 75 mg Darunavir (Prezista) 800 mg PO DAILY [facility] Last Admin: 11/11/16 08:50 Dose: 800 mg Docusate Sodium (Colace) 100 mg PO BID [facility] Last Admin: 11/11/16 08:51 Dose: 100 mg Enoxaparin Sodium (Lovenox) 40 mg SC DAILY [facility] PRN Reason: Protocol Last Admin: 11/11/16 08:53 Dose: 40 mg Famotidine (Pepcid) 20 mg PO BID [facility] Last Admin: 11/11/16 08:50 Dose: 20 mg Guaifenesin/Dextromethorphan (Robitussin Dm) 10 ml PO Q6 PRN PRN Reason: Cough Last Admin: 11/10/16 11:33 Dose: 10 ml Lactobacillus Acidophilus (Bacid Acidophilus) 1 cap PO DAILY [facility] Last Admin: 11/11/16 08:52 Dose: 1 cap Prochlorperazine (Compazine) 10 mg PO Q6 PRN PRN Reason: Nausea/Vomiting Last Admin: 11/09/16 11:56 Dose: 10 mg Raltegravir (Isentress) 400 mg PO BID [facility] Last Admin: 11/11/16 08:50 Dose: 400 mg Ritonavir (Norvir) 100 mg PO DAILY [facility] Last Admin: 11/11/16 08:50 Dose: 100 mg Trimethoprim/Sulfamethoxazole (Bactrim Ds Tab) 1 tab PO MWF [facility] Last Admin: 11/09/16 08:35 Dose: 1 tab Zolpidem Tartrate (Ambien) 5 mg PO HS PRN PRN Reason: Insomnia Last Admin: 11/10/16 22:02 Dose: 5 mg - Labs Labs: 11/09/16 06:30 11/05/16 06:00 - Head Exam Head Exam: ATRAUMATIC, NORMAL INSPECTION, NORMOCEPHALIC - Eye Exam Eye Exam: Normal appearance Pupil Exam: NORMAL ACCOMODATION - ENT Exam ENT Exam: Mucous Membranes Moist - Neck Exam Neck Exam: Normal Inspection - Respiratory Exam Respiratory Exam: Clear to Ausculation Bilateral, NORMAL BREATHING PATTERN - Cardiovascular Exam Cardiovascular Exam: REGULAR RHYTHM - GI/Abdominal Exam GI & Abdominal Exam: Soft, Normal Bowel Sounds - Exam External exam: NORMAL EXTERNAL EXAM - Extremities Exam Extremities Exam: Normal Capillary Refill, Normal Inspection - Back Exam Back Exam: NORMAL INSPECTION - Neurological Exam Neurological Exam: Alert, Awake - Psychiatric Exam Psychiatric exam: Normal Affect, Normal Mood - Skin Skin Exam: Dry, Normal Color Assessment and Plan (1) Prophylactic measure Status: Acute (2) HIV (human immunodeficiency virus infection) Status: Chronic (3) History of asthma Status: Chronic (4) History of cocaine use Status: Chronic (5) History of depression Status: Chronic (6) Hx of ischemic left MCA stroke Status: Chronic
--- NOTE | 2016-11-11 15:08 | CP.PCM.PN ---
Subjective - Date & Time of Evaluation Date of Evaluation: 11/10/16 Time of Evaluation: 11:00 - Subjective Subjective: no acute complaints Objective - Vital Signs/Intake and Output Vital Signs (last 24 hours): Temp Pulse Resp BP Pulse Ox 97.9 F 65 19 100/60 99 11/11/16 08:00 11/11/16 08:00 11/11/16 08:00 11/11/16 08:00 11/11/16 08:00 - Medications Medications: Current Medications Acetaminophen (Tylenol 325mg Tab) 650 mg PO Q4 PRN PRN Reason: .Pain (scale 4-10) Last Admin: 11/05/16 20:56 Dose: 650 mg Albuterol/Ipratropium (Duoneb 3 Mg/0.5 Mg (3 Ml) Ud) 3 ml INH RQ6 PRN PRN Reason: Shortness of Breath Last Admin: 11/04/16 18:11 Dose: 3 ml Aspirin (Aspirin Chewable) 81 mg PO DAILY [facility] Last Admin: 11/11/16 08:50 Dose: 81 mg Atorvastatin Calcium (Lipitor) 80 mg PO HS [facility] Last Admin: 11/10/16 21:16 Dose: 80 mg Azithromycin (Zithromax) 600 mg PO QWK@2100 [facility] Last Admin: 11/06/16 21:00 Dose: 600 mg Clopidogrel Bisulfate (Plavix) 75 mg PO DAILY [facility] Last Admin: 11/11/16 08:50 Dose: 75 mg Darunavir (Prezista) 800 mg PO DAILY [facility] Last Admin: 11/11/16 08:50 Dose: 800 mg Docusate Sodium (Colace) 100 mg PO BID [facility] Last Admin: 11/11/16 08:51 Dose: 100 mg Enoxaparin Sodium (Lovenox) 40 mg SC DAILY [facility] PRN Reason: Protocol Last Admin: 11/11/16 08:53 Dose: 40 mg Famotidine (Pepcid) 20 mg PO BID [facility] Last Admin: 11/11/16 08:50 Dose: 20 mg Guaifenesin/Dextromethorphan (Robitussin Dm) 10 ml PO Q6 PRN PRN Reason: Cough Last Admin: 11/10/16 11:33 Dose: 10 ml Lactobacillus Acidophilus (Bacid Acidophilus) 1 cap PO DAILY [facility] Last Admin: 11/11/16 08:52 Dose: 1 cap Prochlorperazine (Compazine) 10 mg PO Q6 PRN PRN Reason: Nausea/Vomiting Last Admin: 11/09/16 11:56 Dose: 10 mg Raltegravir (Isentress) 400 mg PO BID [facility] Last Admin: 11/11/16 08:50 Dose: 400 mg Ritonavir (Norvir) 100 mg PO DAILY [facility] Last Admin: 11/11/16 08:50 Dose: 100 mg Trimethoprim/Sulfamethoxazole (Bactrim Ds Tab) 1 tab PO MWF [facility] Last Admin: 11/09/16 08:35 Dose: 1 tab Zolpidem Tartrate (Ambien) 5 mg PO HS PRN PRN Reason: Insomnia Last Admin: 11/10/16 22:02 Dose: 5 mg - Labs Labs: 11/09/16 06:30 11/05/16 06:00 - Head Exam Head Exam: ATRAUMATIC, NORMAL INSPECTION, NORMOCEPHALIC - Eye Exam Eye Exam: Normal appearance Pupil Exam: NORMAL ACCOMODATION - Respiratory Exam Respiratory Exam: NORMAL BREATHING PATTERN - Cardiovascular Exam Cardiovascular Exam: REGULAR RHYTHM - GI/Abdominal Exam GI & Abdominal Exam: Normal Bowel Sounds Assessment and Plan (1) Prophylactic measure Status: Acute (2) HIV (human immunodeficiency virus infection) Status: Chronic (3) History of asthma Status: Chronic (4) History of cocaine use Status: Chronic (5) History of depression Status: Chronic (6) Hx of ischemic left MCA stroke Assessment & Plan: plan for physical, occupational and rec therapy covering for Dr Zavala. Status: Chronic
[2016-11-12 07:20] LABS: HEMOGLOBIN 12.1 g/dL (12.0-16.0); MEAN CELL VOLUME 87.5 fl (81.0-99.0); MEAN CORPUSCULAR HEMOGLOBIN 29.1 pg (27.0-31.0); MEAN CORPUSCULAR HGB CONC 33.3 g/dL (33.0-37.0); RBC 4.16 Mil/uL (3.80-5.20); RED CELL DISTRIBUTION WIDTH 13.4 % (11.5-14.5); WHITE BLOOD COUNT 3.3 K/uL (4.8-10.8)
[2016-11-12] MEDS: Lactobacillus Acidophilus 500 MU Cap PO SCH (08:29)
[2016-11-12] MEDS: Enoxaparin 40 mg Syringe SC SCH (08:30)
[2016-11-12] MEDS: Tmp-Smz 800 mg-160 mg DS Tab PO SCH (08:30)
[2016-11-12] MEDS: guaiFENesin DM 200 mg-20 mg/10 ml UD PO PRN (08:32)
--- NOTE | 2016-11-12 14:14 | RAD ---
HISTORY: right flank pain, history of kidney stone COMPARISON: No prior. FINDINGS: BOWEL: Normal. No obstruction. No free air. BONES: No acute fractures. Mild degenerative change. 1 lumbar scoliosis. OTHER FINDINGS: Postoperative findings in the pelvis and left hip region. Multiple small gallstones. IMPRESSION: No acute findings related to/accounting for the clinical presentation. No preliminary report provided by emergency department personnel.
--- NOTE | 2016-11-12 15:47 | CP.PCM.PN ---
Subjective - Date & Time of Evaluation Date of Evaluation: 11/12/16 Time of Evaluation: 13:00 - Subjective Subjective: Pt seen and examined. Complained of right flank pain and was told several months ago that she had kidney stones. Objective - Vital Signs/Intake and Output Vital Signs (last 24 hours): Temp Pulse Resp BP Pulse Ox 97.7 F 66 18 103/67 100 11/12/16 08:03 11/12/16 08:03 11/12/16 08:03 11/12/16 08:03 11/12/16 08:03 - Medications Medications: Current Medications Acetaminophen (Tylenol 325mg Tab) 650 mg PO Q4 PRN PRN Reason: .Pain (scale 4-10) Last Admin: 11/05/16 20:56 Dose: 650 mg Albuterol/Ipratropium (Duoneb 3 Mg/0.5 Mg (3 Ml) Ud) 3 ml INH RQ6 PRN PRN Reason: Shortness of Breath Last Admin: 11/04/16 18:11 Dose: 3 ml Aspirin (Aspirin Chewable) 81 mg PO DAILY [facility] Last Admin: 11/12/16 08:30 Dose: 81 mg Atorvastatin Calcium (Lipitor) 80 mg PO HS [facility] Last Admin: 11/11/16 21:29 Dose: 80 mg Azithromycin (Zithromax) 600 mg PO QWK@2100 [facility] Last Admin: 11/06/16 21:00 Dose: 600 mg Clopidogrel Bisulfate (Plavix) 75 mg PO DAILY [facility] Last Admin: 11/12/16 08:30 Dose: 75 mg Darunavir (Prezista) 800 mg PO DAILY [facility] Last Admin: 11/12/16 08:30 Dose: 800 mg Docusate Sodium (Colace) 100 mg PO BID [facility] Last Admin: 11/12/16 08:30 Dose: 100 mg Enoxaparin Sodium (Lovenox) 40 mg SC DAILY [facility] PRN Reason: Protocol Last Admin: 11/12/16 08:30 Dose: 40 mg Famotidine (Pepcid) 20 mg PO BID [facility] Last Admin: 11/12/16 08:30 Dose: 20 mg Guaifenesin/Dextromethorphan (Robitussin Dm) 10 ml PO Q6 PRN PRN Reason: Cough Last Admin: 11/12/16 08:32 Dose: 10 ml Lactobacillus Acidophilus (Bacid Acidophilus) 1 cap PO DAILY [facility] Last Admin: 11/12/16 08:29 Dose: 1 cap Prochlorperazine (Compazine) 10 mg PO Q6 PRN PRN Reason: Nausea/Vomiting Last Admin: 11/09/16 11:56 Dose: 10 mg Raltegravir (Isentress) 400 mg PO BID [facility] Last Admin: 11/12/16 08:30 Dose: 400 mg Ritonavir (Norvir) 100 mg PO DAILY [facility] Last Admin: 11/12/16 08:30 Dose: 100 mg Trimethoprim/Sulfamethoxazole (Bactrim Ds Tab) 1 tab PO MWF [facility] Last Admin: 11/12/16 08:30 Dose: 1 tab Zolpidem Tartrate (Ambien) 5 mg PO HS PRN PRN Reason: Insomnia Last Admin: 11/11/16 22:12 Dose: 5 mg - Labs Labs: 11/12/16 06:00 11/05/16 06:00 - Constitutional Appears: No Acute Distress - Head Exam Head Exam: ATRAUMATIC - Eye Exam Eye Exam: absent: Scleral icterus - ENT Exam ENT Exam: Mucous Membranes Moist - Neck Exam Neck Exam: absent: Meningismus - Respiratory Exam Respiratory Exam: absent: Rhonchi, Wheezes, Respiratory Distress - Cardiovascular Exam Cardiovascular Exam: REGULAR RHYTHM, +S1, +S2 - GI/Abdominal Exam GI & Abdominal Exam: Soft. absent: Tenderness - Rectal Exam Rectal Exam: Deferred - Back Exam Back Exam: absent: tenderness - Neurological Exam Neurological Exam: Alert, Oriented x3 - Psychiatric Exam Psychiatric exam: Normal Affect - Skin Skin Exam: Dry, Intact Assessment and Plan - Assessment and Plan (Free Text) Assessment: 61 yo female admitted at [facility] [place] because of right sided weakness and slurred speech. She was found to have evolving left mike radiata infarct and was given TPA. She was later transferred to [facility] and admitted in Acute Rehab for PT/ OT. (1) Ischemic left MCA stroke on ASA and Plavix Atorvastatin 80 mg PO daily through 11/16/16 then 40 mg PO daily as per [facility] [place] records Neurology Dr. Frida Guevara Physiatry Dr. Zavala doing well with PT/OT (2) HIV (human immunodeficiency virus infection) Last CD 4 count was 173 on 10/04/16 as per [facility] [place] [facility] records being followed by Dr. Christina Romeor, ID physician, as outpatient continue prophylaxis with Bactrim DS 1 tab PO and Zythromax 600 mg 1 tab PO 1x/week (Saturday) continue Prezista and Norvir and Raltegravir (3) Asthma Duoneb Q6H PRN for SOB/Wheezing (4) Right Flank Pain on and off right flank pain KUB: gallstones, no kidney stones pt probably meant gallstones and not kidney stone on the same side (5) DVT Prophylaxis Lovenox 40mg SC daily
[2016-11-13] MEDS: Lactobacillus Acidophilus 500 MU Cap PO SCH (08:09)
[2016-11-13] MEDS: Enoxaparin 40 mg Syringe SC SCH (08:09)
--- NOTE | 2016-11-13 13:09 | PSY.TMCNF ---
Nursing - Vital Signs Vital Signs (Last 8 hours): Vital Signs 11/13/16 11/13/16 09:00 09:25 Temperature 97.7 F 97.2 F L Pulse Rate 66 80 Respiratory 20 21 Rate Blood Pressure 108/65 121/68 O2 Sat by Pulse 78 L Oximetry Pain: 0 - Precautions: Precautions: Fall Prevention, Seizure - Medications/Other Issues Comment: Pt at moderate nutritional risk. goal: 1. Pt to consume 75-100% of meals(not met, continue). Follow-up due on 11/15/2016 - Consults Comment: seen by , , - Toileting Toileting: Minimal Assistance - Bladder Management Bladder Pattern: Normal Voiding Method: Toilet - Bowel Management Bowel Pattern: Normal Comment: on stool softener Bowel Management: Minimal Assistance Frequency of Accidents: none - Transfers Transfers: Minimal Assistance - ADL's ADL's: Minimal Assistance - Pain Management Comments: denies pain - Patient/Family Teaching Comments: safety measures, medications - Goals/Time Frame Comments: go home safely - Provider Provider: MARY Shipley Physical Therapy - Bed Mobility Bed Mobility: Supervision - Transfers Sit to Stand: Supervision - Ambulation Level of Assistance: Supervision, Verbal Cues Distance (ft.): 125 Assistive Devices: Single point cane - Stair Negotiation Stairs: Level of Assistance: Supervision, Verbal Cues Number of Stairs: 2 Stairs: Assistive Devices: Left Handrail, Single point cane - Standing Balance Static Stand: Supervision Dynamic Stand: Contact Guard Assist - Pain Pain (assessed during therapy session): 0 - Insight/Carryover Insight/Carryover: Good - Patient/Family Education Comment: -ongoing gor adls, functional transfers/mobility, RUE management/HEP, safety strategies with good carryover - Assessment/Plan Assessment: Pt is a 61 year old female with dx: acute ischemic CVA. Precautions : falls, cardiac, HIV+, bed/w/c alarms. Pt presents with the following limitations: -impaired AROM/motor control RUE(+synergy pattern) and RLE. - impaired postural control sitting/standing. -impaired overall endurance/ activity tolerance. -impaired safety awareness. -impaired knowledge of adaptive/compensatory strategies..which impact on function in self care, functional transfers/mobility. Pt will continue to benefit from skilled Occupational Therapy to address impairments as needed to maxmize I & safety duirng adls using adaptive/compensatory strategies/devices, functional transfers /mobilty for safe transition home. Pt demonstrates improvements in RUE function, adls/functional transfers, safety awareness and overall activity tolerance. Caregiver education recommended for safe transition home with services. Pt will likley need the following DMEs: -shower chair or transfer tub bench dependent on pt's progress and home setup. -raised toilet seated. - straight cane or NBQC..pending progress. -Pt currently at CS/CG level for adls , functional transfers/mobility and Iadls. *Goal: -Intermittent Supervision overall for adls, functional transfers/mobility & Iadls. -Caregiver to be I cueing, guarding and assisting pt with daily living tasks - Goals Timeframe: 5 days Goals: Feeding: Mod I; use RUE as gross assist. -Grooming: I after setup seated ; Supervision when standing. -Upper body dressing: I after setup seated. - Lower body dressing: Supervision/setup seated. -Upper body bathing: Supervsiion/setup seated. -lower body bathing: Superviison/CS and verbal cues seated. -Toileting:Supervision/Distant Supervision. -Transfers:Supervision/ Distant S <->bed, commode, chair and other surfcaes; CS/Supervision to/from shower. -Creagiver to be I assisting/cueing pt for adls, functional transfers/ mobilty and Iadls using safety strategies. -Gather/transport items: Supervision and verbal cuesto prep for adls. -Light homemaking skills: Supervision and verbal cues. -w/c propulsion/management: 150 feet with mod I. -LUE function: increase to 3/5 throughout with incresaed isolation for improved adl function - Provider Therapist: Rebecca Yeh PT, DPT License Number: [id number] Occupational Therapy - Arousal/Attention/Orientation Level of Consciousness: Awake, Alert Patient Orientation: Person, Place, Time, Appropriate to Age, Appropriate to Situation - ADL/IADL Self Feeding: Independent, Set-up Help Grooming: Independent, Set-up Help Bathing-Upper Extremity: Independent, Set-up Help Bathing-Lower Extremity: Verbal Cues, Set-up Help, Contact Guard Dressing-Upper Extremity: Independent, Set-up Help Dressing-Lower Extremity: Supervision, Verbal Cues, Set-up Help Homemaking: Verbal Cues, Set-up Help, Minimal Assistance - Sitting Balance Static Sitting: Independent without upper extremity support Dynamic Sitting: Reaches across midline, Reaches out of base of support, Reaches within base of support, Requires supervision Comment: seated at edge of bed - Transfers Wheelchair to Bed Transfers: Supervision, Verbal Cues, Set-up Help, Contact Guard Toilet Transfers: Supervision, Verbal Cues, Set-up Help, Contact Guard Comment: shower transfers: CG/CS and verbal cues due to slippery surfaces - Wheelchair Management Level of Assistance: Supervision Distance (ft.): 150 - Upper Extremity Status Right Upper Extremity Comment: PROM IS WNLS, but AROM is impaired; pt uses RUE as gross assist during bimnaul task sunc as pulling pants over hips Left Upper Extremity Comment: AROM is WNLS;;4/5 - Pain Pain (assessed during therapy session): 0 - Insight/Carryover Insight/Carryover: Good - Patient/Family Education Comment: -ongoing gor adls, functional transfers/mobility, RUE management/HEP, safety strategies with good carryover - Assessment/Plan Assessment: Pt is a 61 year old female with dx: acute ischemic CVA. Precautions : falls, cardiac, HIV+, bed/w/c alarms. Pt presents with the following limitations: -impaired AROM/motor control RUE(+synergy pattern) and RLE. - impaired postural control sitting/standing. -impaired overall endurance/ activity tolerance. -impaired safety awareness. -impaired knowledge of adaptive/compensatory strategies..which impact on function in self care, functional transfers/mobility. Pt will continue to benefit from skilled Occupational Therapy to address impairments as needed to maxmize I & safety duirng adls using adaptive/compensatory strategies/devices, functional transfers /mobilty for safe transition home. Pt demonstrates improvements in RUE function, adls/functional transfers, safety awareness and overall activity tolerance. Caregiver education recommended for safe transition home with services. Pt will likley need the following DMEs: -shower chair or transfer tub bench dependent on pt's progress and home setup. -raised toilet seated. - straight cane or NBQC..pending progress. -Pt currently at CS/CG level for adls , functional transfers/mobility and Iadls. *Goal: -Intermittent Supervision overall for adls, functional transfers/mobility & Iadls. -Caregiver to be I cueing, guarding and assisting pt with daily living tasks - Goals Timeframe: 5 days Goals: Feeding: Mod I; use RUE as gross assist. -Grooming: I after setup seated ; Supervision when standing. -Upper body dressing: I after setup seated. - Lower body dressing: Supervision/setup seated. -Upper body bathing: Supervsiion/setup seated. -lower body bathing: Superviison/CS and verbal cues seated. -Toileting:Supervision/Distant Supervision. -Transfers:Supervision/ Distant S <->bed, commode, chair and other surfcaes; CS/Supervision to/from shower. -Creagiver to be I assisting/cueing pt for adls, functional transfers/ mobilty and Iadls using safety strategies. -Gather/transport items: Supervision and verbal cuesto prep for adls. -Light homemaking skills: Supervision and verbal cues. -w/c propulsion/management: 150 feet with mod I. -LUE function: increase to 3/5 throughout with incresaed isolation for improved adl function - Provider Therapist: Annie Parker, OTR/L License Number: [id number] Speech Therapy - Consult Information Patient on Program: Yes Medical Diagnosis: CVA Treatment Diagnosis: mild cognitive-linguistic deficits - Assessment Memory Impairment: Mild - Plan Assessment: Pt is a 61 year old female with dx: acute ischemic CVA. Precautions : falls, cardiac, HIV+, bed/w/c alarms. Pt presents with the following limitations: -impaired AROM/motor control RUE(+synergy pattern) and RLE. - impaired postural control sitting/standing. -impaired overall endurance/ activity tolerance. -impaired safety awareness. -impaired knowledge of adaptive/compensatory strategies..which impact on function in self care, functional transfers/mobility. Pt will continue to benefit from skilled Occupational Therapy to address impairments as needed to maxmize I & safety duirng adls using adaptive/compensatory strategies/devices, functional transfers /mobilty for safe transition home. Pt demonstrates improvements in RUE function, adls/functional transfers, safety awareness and overall activity tolerance. Caregiver education recommended for safe transition home with services. Pt will likley need the following DMEs: -shower chair or transfer tub bench dependent on pt's progress and home setup. -raised toilet seated. - straight cane or NBQC..pending progress. -Pt currently at CS/CG level for adls , functional transfers/mobility and Iadls. *Goal: -Intermittent Supervision overall for adls, functional transfers/mobility & Iadls. -Caregiver to be I cueing, guarding and assisting pt with daily living tasks - Provider Therapist: Karolina Cheng License Number: [id number] Recreational Therapy - Participation Participation: Participates in Individual and/or Group Sessions - Attendance Attendance: 3-5 times per week - Activities Leisure Activities: Television - Socialization Level of Socialization: Initiates/interacts freely with care givers and peer - Assessment Assessment/Plan: Pt is a 61 year old female with dx: acute ischemic CVA. Precautions: falls, cardiac, HIV+, bed/w/c alarms. Pt presents with the following limitations: -impaired AROM/motor control RUE(+synergy pattern) and RLE. -impaired postural control sitting/standing. -impaired overall endurance/ activity tolerance. -impaired safety awareness. -impaired knowledge of adaptive/compensatory strategies..which impact on function in self care, functional transfers/mobility. Pt will continue to benefit from skilled Occupational Therapy to address impairments as needed to maxmize I & safety duirng adls using adaptive/compensatory strategies/devices, functional transfers /mobilty for safe transition home. Pt demonstrates improvements in RUE function, adls/functional transfers, safety awareness and overall activity tolerance. Caregiver education recommended for safe transition home with services. Pt will likley need the following DMEs: -shower chair or transfer tub bench dependent on pt's progress and home setup. -raised toilet seated. - straight cane or NBQC..pending progress. -Pt currently at CS/CG level for adls , functional transfers/mobility and Iadls. *Goal: -Intermittent Supervision overall for adls, functional transfers/mobility & Iadls. -Caregiver to be I cueing, guarding and assisting pt with daily living tasks - Provider Therapist: Radha Valles, CLEANING STAFF SUPERVISOR #[id number] Nutrition - Current Diet Current Diet/ Supplement/ Feedings: 2 gram Na low fat/low cholesterol - Appetite Percent Meal Consumed: 75-100% - Comments Comments: safety measures, medications - Assessment/Goals/Time Frame Assessment/Goals/Time Frame: Pt at moderate nutritional risk. goal: 1. Pt to consume 75-100% of meals(not met, continue). Follow-up due on 11/15/2016 - Provider Provider: Ines Page RD Case Management - Psychosocial Assessment Support Systems: Krystle Velasco (daughter)- [phone] Psychological Interventions/Needs: Patient is alert with intermittent confusion , pleasant and cooperative Discharge Concerns: Patient currently requiring CG-min A for stand pivot transfers and transfers. Patient/Family Meeting: CM met with patient and rehab team via certified Kenyan speaking sheet catcher Nolvia Ellis (patient primarily Kenyan speaking). Intervention/Goal/Outcome:: 1. Goal: Intermittent supervision/assistance?. 2. Plan: Home with VNS- CM spoke with patient's clinical social work aide Robina Perera at [facility] program [phone] regarding questions/concerns on patient' s progress and eligibility for services after discharge- housing program CAN accomodate VNS services as well as any over night guests that may be available for support. Patient can also be discharged home with any necessary DME. river transportation worker Robina Perera to come in tomorrow to speak with patient and solidify discharge plan. 3. DME needs. 4. f/u appts. 5. continued stay auth, LAD: 11/09. 6. continued emotional support. 7. Tentative discharge date: 11/17/2016 - Discharge Plan Discharge Plan: Home with services - Provider Provider: JAMEY Johnston, [employer] FINISHER License Number: [id number] Rehabilitation Plan - Treatment Plan Treatment Plan: Physical Therapy, Occupational Therapy, Speech, Dietary, Patient /Family Education - Discharge Plan Estimated Date of Discharge: 11/17/16 Discharge to: Home (family training on the )
--- NOTE | 2016-11-13 17:04 | CP.PCM.PN ---
Subjective - Date & Time of Evaluation Date of Evaluation: 11/13/16 Time of Evaluation: 17:02 - Subjective Subjective: Patient seen in room denies pain or sob aware of progress and continues to do well excellent inpatient rehab candidate she will be staying at [facility] so will be able to d/c home and avoid [facility] Objective - Vital Signs/Intake and Output Vital Signs (last 24 hours): Temp Pulse Resp BP Pulse Ox 97.2 F L 80 21 121/68 78 L 11/13/16 09:25 11/13/16 09:25 11/13/16 09:25 11/13/16 09:25 11/13/16 09:25 - Medications Medications: Current Medications Acetaminophen (Tylenol 325mg Tab) 650 mg PO Q4 PRN PRN Reason: .Pain (scale 4-10) Last Admin: 11/13/16 16:48 Dose: 650 mg Albuterol/Ipratropium (Duoneb 3 Mg/0.5 Mg (3 Ml) Ud) 3 ml INH RQ6 PRN PRN Reason: Shortness of Breath Last Admin: 11/04/16 18:11 Dose: 3 ml Aspirin (Aspirin Chewable) 81 mg PO DAILY [facility] Last Admin: 11/13/16 08:03 Dose: 81 mg Atorvastatin Calcium (Lipitor) 80 mg PO HS [facility] Last Admin: 11/12/16 21:55 Dose: 80 mg Azithromycin (Zithromax) 600 mg PO QWK@2100 [facility] Last Admin: 11/06/16 21:00 Dose: 600 mg Clopidogrel Bisulfate (Plavix) 75 mg PO DAILY [facility] Last Admin: 11/13/16 08:11 Dose: 75 mg Darunavir (Prezista) 800 mg PO DAILY [facility] Last Admin: 11/13/16 08:11 Dose: 800 mg Docusate Sodium (Colace) 100 mg PO BID [facility] Last Admin: 11/13/16 16:57 Dose: 100 mg Enoxaparin Sodium (Lovenox) 40 mg SC DAILY [facility] PRN Reason: Protocol Last Admin: 11/13/16 08:09 Dose: 40 mg Famotidine (Pepcid) 20 mg PO BID [facility] Last Admin: 11/13/16 16:57 Dose: 20 mg Guaifenesin/Dextromethorphan (Robitussin Dm) 10 ml PO Q6 PRN PRN Reason: Cough Last Admin: 11/12/16 08:32 Dose: 10 ml Lactobacillus Acidophilus (Bacid Acidophilus) 1 cap PO DAILY [facility] Last Admin: 11/13/16 08:09 Dose: 1 cap Prochlorperazine (Compazine) 10 mg PO Q6 PRN PRN Reason: Nausea/Vomiting Last Admin: 11/09/16 11:56 Dose: 10 mg Raltegravir (Isentress) 400 mg PO BID [facility] Last Admin: 11/13/16 16:57 Dose: 400 mg Ritonavir (Norvir) 100 mg PO DAILY [facility] Last Admin: 11/13/16 08:09 Dose: 100 mg Trimethoprim/Sulfamethoxazole (Bactrim Ds Tab) 1 tab PO MWF [facility] Last Admin: 11/12/16 08:30 Dose: 1 tab Zolpidem Tartrate (Ambien) 5 mg PO HS PRN PRN Reason: Insomnia Last Admin: 11/12/16 21:57 Dose: 5 mg - Labs Labs: 11/12/16 06:00 11/05/16 06:00
[2016-11-14 07:48] LABS: % CD4 (T HELPER CELL) 16 Percent (30-61); % CD8 (SUPPRESSOR T CELL) 66 Percent (12-42); ABSOLUTE CD4 CELLS 140 Cells/mcL (490-1740); ABSOLUTE CD8 CELLS 586 Cells/mcL (180-1170); ABSOLUTE LYMPHOCYTES 883 Cells/mcL (850-3900); HELPER/SUPPRESSOR RATIO 0.24 Ratio (0.86-5.00)
[2016-11-14] MEDS: Tmp-Smz 800 mg-160 mg DS Tab PO SCH (08:25)
[2016-11-14] MEDS: Enoxaparin 40 mg Syringe SC SCH (08:26)
[2016-11-14] MEDS: Lactobacillus Acidophilus 500 MU Cap PO SCH (08:28)
--- NOTE | 2016-11-14 13:41 | CP.PCM.PN ---
Subjective - Date & Time of Evaluation Date of Evaluation: 11/14/16 Time of Evaluation: 13:40 - Subjective Subjective: pt doing well tolerating PT feels she is improving no complaints HD stable Objective - Vital Signs/Intake and Output Vital Signs (last 24 hours): Temp Pulse Resp BP Pulse Ox 96.3 F L 75 20 102/72 100 11/14/16 10:00 11/14/16 10:00 11/14/16 10:00 11/14/16 10:00 11/14/16 10:00 - Medications Medications: Current Medications Acetaminophen (Tylenol 325mg Tab) 650 mg PO Q4 PRN PRN Reason: .Pain (scale 4-10) Last Admin: 11/13/16 16:48 Dose: 650 mg Albuterol/Ipratropium (Duoneb 3 Mg/0.5 Mg (3 Ml) Ud) 3 ml INH RQ6 PRN PRN Reason: Shortness of Breath Last Admin: 11/04/16 18:11 Dose: 3 ml Aspirin (Aspirin Chewable) 81 mg PO DAILY [facility] Last Admin: 11/14/16 08:26 Dose: 81 mg Atorvastatin Calcium (Lipitor) 80 mg PO HS [facility] Last Admin: 11/13/16 21:14 Dose: 80 mg Azithromycin (Zithromax) 600 mg PO QWK@2100 [facility] Last Admin: 11/13/16 21:13 Dose: 600 mg Clopidogrel Bisulfate (Plavix) 75 mg PO DAILY [facility] Last Admin: 11/14/16 08:26 Dose: 75 mg Darunavir (Prezista) 800 mg PO DAILY [facility] Last Admin: 11/14/16 08:25 Dose: 800 mg Docusate Sodium (Colace) 100 mg PO BID [facility] Last Admin: 11/14/16 08:25 Dose: 100 mg Enoxaparin Sodium (Lovenox) 40 mg SC DAILY [facility] PRN Reason: Protocol Last Admin: 11/14/16 08:26 Dose: 40 mg Famotidine (Pepcid) 20 mg PO BID [facility] Last Admin: 11/14/16 08:24 Dose: 20 mg Guaifenesin/Dextromethorphan (Robitussin Dm) 10 ml PO Q6 PRN PRN Reason: Cough Last Admin: 11/12/16 08:32 Dose: 10 ml Lactobacillus Acidophilus (Bacid Acidophilus) 1 cap PO DAILY [facility] Last Admin: 08/16/17 08:28 Dose: 1 cap Prochlorperazine (Compazine) 10 mg PO Q6 PRN PRN Reason: Nausea/Vomiting Last Admin: 11/09/16 11:56 Dose: 10 mg Raltegravir (Isentress) 400 mg PO BID [facility] Last Admin: 11/14/16 08:25 Dose: 400 mg Ritonavir (Norvir) 100 mg PO DAILY [facility] Last Admin: 11/14/16 08:25 Dose: 100 mg Trimethoprim/Sulfamethoxazole (Bactrim Ds Tab) 1 tab PO MWF [facility] Last Admin: 11/14/16 08:25 Dose: 1 tab Zolpidem Tartrate (Ambien) 5 mg PO HS PRN PRN Reason: Insomnia Last Admin: 11/13/16 22:18 Dose: 5 mg - Labs Labs: 11/12/16 06:00 11/05/16 06:00 - Constitutional Appears: Non-toxic, No Acute Distress - Head Exam Head Exam: ATRAUMATIC, NORMOCEPHALIC - Eye Exam Eye Exam: EOMI, Normal appearance, PERRL Pupil Exam: NORMAL ACCOMODATION - ENT Exam ENT Exam: Mucous Membranes Moist, Normal Oropharynx - Respiratory Exam Respiratory Exam: Clear to Ausculation Bilateral, NORMAL BREATHING PATTERN - Cardiovascular Exam Cardiovascular Exam: RRR, +S1, +S2 - GI/Abdominal Exam GI & Abdominal Exam: Soft, Normal Bowel Sounds. absent: Tenderness, Organomegaly - Extremities Exam Extremities Exam: Normal Capillary Refill. absent: Calf Tenderness - Back Exam Back Exam: absent: CVA tenderness (L), CVA tenderness (R) - Neurological Exam Neurological Exam: Alert, Awake - Psychiatric Exam Psychiatric exam: Normal Affect, Normal Mood - Skin Skin Exam: Dry, Warm Assessment and Plan - Assessment and Plan (Free Text) Plan: 61 yo female admitted at [facility] because of right sided weakness and slurred speech. She was found to have evolving left mike radiata infarct and was given TPA. She was later transferred to [facility] and admitted in Acute Rehab for PT/ OT. (1) Ischemic left MCA stroke on ASA and Plavix Atorvastatin 80 mg PO daily through 11/16/16 then 40 mg PO daily as per [facility] records Neurology Dr. Frida Guevara Physiatry Dr. Zavala doing well with PT/OT (2) HIV (human immunodeficiency virus infection) Last CD 4 count was 173 on 10/04/16 as per [facility] records being followed by Dr. Christina Romero, ID physician, as outpatient continue prophylaxis with Bactrim DS 1 tab PO and Zythromax 600 mg 1 tab PO 1x/week (Saturday) continue Prezista and Norvir and Raltegravir (3) Asthma Duoneb Q6H PRN for SOB/Wheezing (4) Right Flank Pain on and off right flank pain KUB: gallstones, no kidney stones pt probably meant gallstones and not kidney stone on the same side (5) DVT Prophylaxis Lovenox 40mg SC daily
[2016-11-14] MEDS: Alum-Mag Hydrox-Simethicone Susp (30 mL) PO PRN (15:55)
--- NOTE | 2016-11-14 19:12 | CP.PCM.PN ---
Subjective - Date & Time of Evaluation Date of Evaluation: 11/14/16 Time of Evaluation: 19:11 - Subjective Subjective: Patient seen in room doing well ambulating 200' getting PT/OT set for d/c this week with family continue current care Objective - Vital Signs/Intake and Output Vital Signs (last 24 hours): Temp Pulse Resp BP Pulse Ox 96.3 F L 75 20 102/72 100 11/14/16 10:00 11/14/16 10:00 11/14/16 10:00 11/14/16 10:00 11/14/16 10:00 - Medications Medications: Current Medications Acetaminophen (Tylenol 325mg Tab) 650 mg PO Q4 PRN PRN Reason: .Pain (scale 4-10) Last Admin: 11/13/16 16:48 Dose: 650 mg Al Hydrox/Mg Hydrox/Simethicone (Maalox Plus 30 Ml) 30 ml PO Q6 PRN PRN Reason: Indigestion / Heartburn Last Admin: 11/14/16 15:55 Dose: 30 ml Albuterol/Ipratropium (Duoneb 3 Mg/0.5 Mg (3 Ml) Ud) 3 ml INH RQ6 PRN PRN Reason: Shortness of Breath Last Admin: 11/04/16 18:11 Dose: 3 ml Aspirin (Aspirin Chewable) 81 mg PO DAILY [facility] Last Admin: 11/14/16 08:26 Dose: 81 mg Atorvastatin Calcium (Lipitor) 80 mg PO HS [facility] Last Admin: 11/13/16 21:14 Dose: 80 mg Azithromycin (Zithromax) 600 mg PO QWK@2100 [facility] Last Admin: 11/13/16 21:13 Dose: 600 mg Clopidogrel Bisulfate (Plavix) 75 mg PO DAILY [facility] Last Admin: 11/14/16 08:26 Dose: 75 mg Darunavir (Prezista) 800 mg PO DAILY [facility] Last Admin: 11/14/16 08:25 Dose: 800 mg Docusate Sodium (Colace) 100 mg PO BID [facility] Last Admin: 11/14/16 17:00 Dose: 100 mg Enoxaparin Sodium (Lovenox) 40 mg SC DAILY [facility] PRN Reason: Protocol Last Admin: 11/14/16 08:26 Dose: 40 mg Famotidine (Pepcid) 20 mg PO BID [facility] Last Admin: 11/14/16 17:00 Dose: 20 mg Guaifenesin/Dextromethorphan (Robitussin Dm) 10 ml PO Q6 PRN PRN Reason: Cough Last Admin: 11/12/16 08:32 Dose: 10 ml Ibuprofen (Motrin Tab) 600 mg PO Q8 PRN PRN Reason: Pain, moderate (4-7) Lactobacillus Acidophilus (Bacid Acidophilus) 1 cap PO DAILY [facility] Last Admin: 11/14/16 08:28 Dose: 1 cap Prochlorperazine (Compazine) 10 mg PO Q6 PRN PRN Reason: Nausea/Vomiting Last Admin: 11/09/16 11:56 Dose: 10 mg Raltegravir (Isentress) 400 mg PO BID [facility] Last Admin: 11/14/16 17:00 Dose: 400 mg Ritonavir (Norvir) 100 mg PO DAILY [facility] Last Admin: 11/14/16 08:25 Dose: 100 mg Temazepam (Restoril) 30 mg PO HS PRN PRN Reason: Insomnia Trimethoprim/Sulfamethoxazole (Bactrim Ds Tab) 1 tab PO MWF [facility] Last Admin: 11/14/16 08:25 Dose: 1 tab - Labs Labs: 11/12/16 06:00 11/05/16 06:00
[2016-11-15 07:32] LABS: MEAN CELL VOLUME 87.2 fl (81.0-99.0); MEAN CORPUSCULAR HEMOGLOBIN 29.2 pg (27.0-31.0); MEAN CORPUSCULAR HGB CONC 33.5 g/dL (33.0-37.0); RBC 4.1 Mil/uL (3.80-5.20); RED CELL DISTRIBUTION WIDTH 13.4 % (11.5-14.5); WHITE BLOOD COUNT 3.3 K/uL (4.8-10.8)
[2016-11-15] MEDS: Lactobacillus Acidophilus 500 MU Cap PO SCH (08:33)
[2016-11-15] MEDS: Enoxaparin 40 mg Syringe SC SCH (08:33)
[2016-11-15] MEDS: Alum-Mag Hydrox-Simethicone Susp (30 mL) PO PRN (15:24)
[2016-11-16] MEDS: Lactobacillus Acidophilus 500 MU Cap PO SCH (08:54)
[2016-11-16] MEDS: Enoxaparin 40 mg Syringe SC SCH (08:55)
[2016-11-16] MEDS: Tmp-Smz 800 mg-160 mg DS Tab PO SCH (08:56)
[2016-11-16] MEDS: Alum-Mag Hydrox-Simethicone Susp (30 mL) PO PRN (14:34)
[2016-11-16 20:08] VITALS: RESP 18
--- NOTE | 2016-11-16 20:35 | CP.PCM.PN ---
Subjective - Date & Time of Evaluation Date of Evaluation: 11/16/16 Time of Evaluation: 10:00 - Subjective Subjective: no acute complaints at present Objective - Vital Signs/Intake and Output Vital Signs (last 24 hours): Temp Pulse Resp BP Pulse Ox 96.6 F L 66 18 120/84 99 11/16/16 20:07 11/16/16 20:07 11/16/16 20:07 11/16/16 20:07 11/16/16 20:07 - Medications Medications: Current Medications Acetaminophen (Tylenol 325mg Tab) 650 mg PO Q4 PRN PRN Reason: .Pain (scale 4-10) Last Admin: 11/13/16 16:48 Dose: 650 mg Al Hydrox/Mg Hydrox/Simethicone (Maalox Plus 30 Ml) 30 ml PO Q6 PRN PRN Reason: Indigestion / Heartburn Last Admin: 11/16/16 14:34 Dose: 30 ml Albuterol/Ipratropium (Duoneb 3 Mg/0.5 Mg (3 Ml) Ud) 3 ml INH RQ6 PRN PRN Reason: Shortness of Breath Last Admin: 11/04/16 18:11 Dose: 3 ml Aspirin (Aspirin Chewable) 81 mg PO DAILY [facility] Last Admin: 11/16/16 08:55 Dose: 81 mg Atorvastatin Calcium (Lipitor) 80 mg PO HS [facility] Last Admin: 11/15/16 21:53 Dose: 80 mg Azithromycin (Zithromax) 600 mg PO QWK@2100 [facility] Last Admin: 11/13/16 21:13 Dose: 600 mg Clopidogrel Bisulfate (Plavix) 75 mg PO DAILY [facility] Last Admin: 11/16/16 08:55 Dose: 75 mg Darunavir (Prezista) 800 mg PO DAILY [facility] Last Admin: 11/16/16 08:55 Dose: 800 mg Docusate Sodium (Colace) 100 mg PO BID [facility] Last Admin: 11/16/16 16:45 Dose: Not Given Enoxaparin Sodium (Lovenox) 40 mg SC DAILY [facility] PRN Reason: Protocol Last Admin: 11/16/16 08:55 Dose: 40 mg Famotidine (Pepcid) 20 mg PO BID [facility] Last Admin: 11/16/16 16:44 Dose: 20 mg Guaifenesin/Dextromethorphan (Robitussin Dm) 10 ml PO Q6 PRN PRN Reason: Cough Last Admin: 11/12/16 08:32 Dose: 10 ml Ibuprofen (Motrin Tab) 600 mg PO Q8 PRN PRN Reason: Pain, moderate (4-7) Last Admin: 11/16/16 08:54 Dose: 600 mg Lactobacillus Acidophilus (Bacid Acidophilus) 1 cap PO DAILY [facility] Last Admin: 11/16/16 08:54 Dose: 1 cap Prochlorperazine (Compazine) 10 mg PO Q6 PRN PRN Reason: Nausea/Vomiting Last Admin: 11/09/16 11:56 Dose: 10 mg Raltegravir (Isentress) 400 mg PO BID [facility] Last Admin: 11/16/16 16:44 Dose: 400 mg Ritonavir (Norvir) 100 mg PO DAILY [facility] Last Admin: 11/16/16 08:56 Dose: 100 mg Temazepam (Restoril) 30 mg PO HS PRN PRN Reason: Insomnia Last Admin: 11/15/16 22:44 Dose: 30 mg Trimethoprim/Sulfamethoxazole (Bactrim Ds Tab) 1 tab PO MWF [facility] Last Admin: 11/16/16 08:56 Dose: 1 tab - Labs Labs: 11/15/16 06:30 11/05/16 06:00 - Head Exam Head Exam: ATRAUMATIC, NORMAL INSPECTION, NORMOCEPHALIC - Eye Exam Eye Exam: EOMI, Normal appearance Pupil Exam: NORMAL ACCOMODATION, PERRL - ENT Exam ENT Exam: Mucous Membranes Moist, Normal Exam - Neck Exam Neck Exam: Normal Inspection - Respiratory Exam Respiratory Exam: NORMAL BREATHING PATTERN - Cardiovascular Exam Cardiovascular Exam: REGULAR RHYTHM - GI/Abdominal Exam GI & Abdominal Exam: Normal Bowel Sounds - Rectal Exam Rectal Exam: NORMAL INSPECTION - Exam External exam: NORMAL EXTERNAL EXAM - Extremities Exam Extremities Exam: Normal Capillary Refill, Normal Inspection - Back Exam Back Exam: NORMAL INSPECTION - Neurological Exam Neurological Exam: Alert, Awake - Psychiatric Exam Psychiatric exam: Normal Affect - Skin Skin Exam: Normal Color Assessment and Plan (1) Prophylactic measure Status: Acute (2) HIV (human immunodeficiency virus infection) Status: Chronic (3) History of asthma Status: Chronic (4) History of cocaine use Status: Chronic (5) History of depression Status: Chronic (6) Hx of ischemic left MCA stroke Assessment & Plan: plan to continue with pt, Ot REc therapy covering for Dr mansfield Status: Chronic
[2016-11-16] MEDS: guaiFENesin DM 200 mg-20 mg/10 ml UD PO PRN (21:07)
[2016-11-17 07:51] VITALS: BP 102/60; PULSE 76; TEMP 97.5; O2SAT 100
[2016-11-17] MEDS: Enoxaparin 40 mg Syringe SC SCH (08:27)
[2016-11-17] MEDS: Lactobacillus Acidophilus 500 MU Cap PO SCH (08:27)
[2016-11-17] MEDS: Alum-Mag Hydrox-Simethicone Susp (30 mL) PO PRN (12:52)
--- NOTE | 2016-11-17 13:21 | CP.PCM.DIS ---
Provider - Provider Date of Admission: 10/30/16 15:18 Attending physician: Raheem Mesa MD Consults: Dr Sally Unger Time Spent in preparation of Discharge (in minutes): 35 Diagnosis - Discharge Diagnosis (1) Hx of ischemic left MCA stroke Status: Chronic Comment: continue ASA, Plavix and Atorvastatin. ` (2) HIV (human immunodeficiency virus infection) Status: Chronic Comment: follow up with Dr Christina Romero, ID physician, as outpatient. continue Bactrim DS 1 tab PO -W-. continue Raltegravir and Ritonavir. continue Atovaquone (3) History of asthma Status: Chronic Comment: asymptomatic. Albuterol inhaler 2 puffs q 4hrs prn for wheezing or SOB Hospital Course - Lab Results Lab Results: Micro Results 11/08/16 18:00 Urine,Clean Catch Urine Culture - Final 10-50,000 CFU/ML. MULTIPLE SPECIES. PROBABLE CONTAMINATION. Most Recent Lab Values WBC 3.3 K/uL (4.8-10.8) L 11/15/16 06:30 RBC 4.10 Mil/uL (3.80-5.20) 11/15/16 06:30 Hgb 12.0 g/dL (12.0-16.0) 11/15/16 06:30 Hct 35.8 % (34.0-47.0) 11/15/16 06:30 MCV 87.2 fl (81.0-99.0) 11/15/16 06:30 MCH 29.2 pg (27.0-31.0) 11/15/16 06:30 MCHC 33.5 g/dL (33.0-37.0) 11/15/16 06:30 RDW 13.4 % (11.5-14.5) 11/15/16 06:30 Plt Count 114 K/uL (130-400) L 11/15/16 06:30 MPV 10.3 fl (7.2-11.7) 10/31/16 06:00 Neut % (Auto) 53.1 % (50.0-75.0) 10/31/16 06:00 Lymph % (Auto) 31.5 % (20.0-40.0) 10/31/16 06:00 [place] % (Auto) 12.2 % (0.0-10.0) H 10/31/16 06:00 Eos % (Auto) 2.6 % (0.0-4.0) 10/31/16 06:00 Baso % (Auto) 0.6 % (0.0-2.0) 10/31/16 06:00 Neut # 2.1 K/uL (1.8-7.0) 10/31/16 06:00 Lymph # 1.3 K/uL (1.0-4.3) 10/31/16 06:00 [place] # 0.5 K/uL (0.0-0.8) 10/31/16 06:00 Eos # 0.1 K/uL (0.0-0.7) 10/31/16 06:00 Baso # 0.0 K/uL (0.0-0.2) 10/31/16 06:00 Sodium 141 mmol/l (132-148) 11/05/16 06:00 Potassium 4.2 MMOL/L (3.6-5.0) 11/05/16 06:00 Chloride 103 mmol/L (98-107) 11/05/16 06:00 Carbon Dioxide 30 mmol/L (22-30) 11/05/16 06:00 Anion Gap 12 (10-20) 11/05/16 06:00 BUN 18 mg/dl (7-17) H 11/05/16 06:00 Creatinine 1.0 mg/dL (0.7-1.2) 11/05/16 06:00 Est GFR ( Amer) > 60 11/05/16 06:00 Est GFR (Non-Af Amer) 57 11/05/16 06:00 Random Glucose 97 mg/dL (65-105) 11/05/16 06:00 Calcium 9.5 mg/dL (8.4-10.2) 11/05/16 06:00 Total Bilirubin 0.6 mg/dl (0.2-1.3) 11/05/16 06:00 AST 66 U/L (14-36) H 11/05/16 06:00 ALT 62 U/L (9-52) H D 11/05/16 06:00 Alkaline Phosphatase 149 U/L (38-126) H 11/05/16 06:00 Total Protein 8.8 G/DL (6.3-8.2) H 11/05/16 06:00 Albumin 3.9 g/dL (3.5-5.0) 11/05/16 06:00 Globulin 4.9 gm/dL (2.2-3.9) H 11/05/16 06:00 Albumin/Globulin Ratio 0.8 (1.0-2.1) L 11/05/16 06:00 Urine Color Straw (YELLOW) 11/07/16 18:50 Urine Clarity Clear (Clear) 11/07/16 18:50 Urine pH 6.0 (5.0-8.0) 11/07/16 18:50 Ur Specific [place] 1.006 (1.003-1.030) 11/07/16 18:50 Urine Protein Negative mg/dL (NEGATIVE) 11/07/16 18:50 Urine Glucose (UA) Neg mg/dL (Normal) 11/07/16 18:50 Urine Ketones Negative mg/dL (NEGATIVE) 11/07/16 18:50 Urine Blood Moderate (NEGATIVE) 11/07/16 18:50 Urine Nitrate Negative (NEGATIVE) 11/07/16 18:50 Urine Bilirubin Negative (NEGATIVE) 11/07/16 18:50 Urine Urobilinogen 0.2-1.0 mg/dL (0.2-1.0) 11/07/16 18:50 Ur Leukocyte Esterase Neg Marcus/uL (Negative) 11/07/16 18:50 Urine RBC (Auto) 3 /hpf (0-3) 11/07/16 18:50 Urine Microscopic WBC < 1 /hpf (0-5) 11/07/16 18:50 Ur Squamous Epith Cells 1 /hpf (0-5) 11/07/16 18:50 Urine Bacteria Few (<OCC) H 11/07/16 18:50 Absolute Lymphs (Flow) 883 Cells/mcL (850-3900) 11/12/16 06:00 % CD4 Cells 16 Percent (30-61) L 11/12/16 06:00 Absolute CD4 Count 140 Cells/mcL (490-1740) L 11/12/16 06:00 T-Help/Suppress Ratio 0.24 Ratio (0.86-5.00) L 11/12/16 06:00 % CD8 Cells 66 Percent (12-42) H 11/12/16 06:00 Absolute CD8 Count 586 Cells/mcL (180-1170) 11/12/16 06:00 HLA-B*[id number] Negative 11/01/16 19:30 HIV-1 Genotyping Detected H 11/02/16 06:00 - Hospital Course Hospital Course: 61 yo female with history of HIV, Asthma and Substance Abuse was admitted at [facility] because of right sided weakness with slurred speech. She was diagnosed with evolving mike radiata CVA and was given TPA. She was then transferred to [facility] to continue her PT/OT in Acute Rehab. Pt did well and now was discharged in stable condition. Discharge Exam - Head Exam Head Exam: ATRAUMATIC, NORMAL INSPECTION, NORMOCEPHALIC - Eye Exam Eye Exam: absent: Scleral icterus - ENT Exam ENT Exam: Mucous Membranes Moist - Respiratory Exam Respiratory Exam: NORMAL BREATHING PATTERN. absent: Wheezes, Respiratory Distress - Cardiovascular Exam Cardiovascular Exam: REGULAR RHYTHM, +S1, +S2 - GI/Abdominal Exam GI & Abdominal Exam: Soft. absent: Tenderness - Rectal Exam Rectal Exam: Deferred - Back Exam Back exam: NORMAL INSPECTION - Neurological Exam Neurological exam: Alert, Oriented x3 - Psychiatric Exam Psychiatric exam: Normal Affect - Skin Skin Exam: Dry, Intact Discharge Plan - Discharge Medications Prescriptions: Atorvastatin Calcium [Lipitor] 80 mg PO HS #30 Atovaquone 10 ml PO .DAILY WITH LUNCH #30 tsp Clopidogrel [Plavix] 75 mg PO DAILY #30 Raltegravir Potassium [Isentress] 400 mg PO BID #60 tab Ritonavir [Norvir] 100 mg PO DAILY #30 cap Sulfamethoxazole/Trimethoprim [Bactrim DS Tab] 1 tab PO DAILY #30 - Follow Up Plan Condition: GOOD Disposition: HOME/ ROUTINE Instructions: Sulfamethoxazole/Trimethoprim (By mouth), Aspirin (By mouth), Ritonavir (By mouth), Atovaquone (By mouth), Atorvastatin (By mouth), Clopidogrel (By mouth), Raltegravir (By mouth), HIV Infection (DC), Fall Prevention (DC), Stroke (DC)
== END 2016-11-17 13:42 | disposition home or self-care (01) | DRG 12 ==
PROVIDERS: ADMIT Family Medicine; ATTEND Family Medicine
PROC: F07Z9FZ Gait Training/Functional Ambulation Treatment using Assistive, Adaptive, Supportive or Protective Equipment (ICD-10-PCS; principal; 2016-10-30)
PROC: F08Z4FZ Home Management Treatment using Assistive, Adaptive, Supportive or Protective Equipment (ICD-10-PCS; 2016-10-30)
PROC: 3E0234Z Introduction of Serum, Toxoid and Vaccine into Muscle, Percutaneous Approach (ICD-10-PCS; 2016-10-30)
PROC: F07L6FZ Therapeutic Exercise Treatment of Musculoskeletal System - Lower Back / Lower Extremity using Assistive, Adaptive, Supportive or Protective Equipment (ICD-10-PCS; 2016-10-31)
PROC: F06Z8ZZ Motor Speech Treatment (ICD-10-PCS; 2016-10-31)
PROC: 0HBRXZZ Excision of Toe Nail, External Approach (ICD-10-PCS; 2016-11-05)
PROC: 0HBRXZZ Excision of Toe Nail, External Approach (ICD-10-PCS; 2016-11-05)
PROC: 0HBRXZZ Excision of Toe Nail, External Approach (ICD-10-PCS; 2016-11-05)
PROC: 0HBRXZZ Excision of Toe Nail, External Approach (ICD-10-PCS; 2016-11-05)
PROC: 0HBRXZZ Excision of Toe Nail, External Approach (ICD-10-PCS; 2016-11-05)
PROC: 0HBRXZZ Excision of Toe Nail, External Approach (ICD-10-PCS; 2016-11-05)
PROC: 0HBRXZZ Excision of Toe Nail, External Approach (ICD-10-PCS; 2016-11-05)
PROC: 0HBRXZZ Excision of Toe Nail, External Approach (ICD-10-PCS; 2016-11-05)
PROC: 0HBRXZZ Excision of Toe Nail, External Approach (ICD-10-PCS; 2016-11-05)
PROC: 0HBRXZZ Excision of Toe Nail, External Approach (ICD-10-PCS; 2016-11-05)
DX: I69.351 Hemiplegia and hemiparesis following cerebral infarction affecting right dominant side (principal); I10 Essential (primary) hypertension; F14.10 Cocaine abuse, uncomplicated; F32.9 Major depressive disorder, single episode, unspecified; B35.1 Tinea unguium; I69.328 Other speech and language deficits following cerebral infarction; Z21 Asymptomatic human immunodeficiency virus [HIV] infection status; Z91.19 Patient's noncompliance with other medical treatment and regimen; E78.5 Hyperlipidemia, unspecified; J45.909 Unspecified asthma, uncomplicated; F17.210 Nicotine dependence, cigarettes, uncomplicated; Z23 Encounter for immunization; Z85.41 Personal history of malignant neoplasm of cervix uteri; Z79.02 Long term (current) use of antithrombotics/antiplatelets; Z79.82 Long term (current) use of aspirin; Z92.3 Personal history of irradiation; Z92.21 Personal history of antineoplastic chemotherapy; Z87.442 Personal history of urinary calculi